=== PATIENT | female | born 1950 | race Caucasian/White ===

== ENCOUNTER → 2016-10-05 | Outpatient (CLI) | payer MEDICARE ==
[~2016-10-05] MED LIST: ACETAMINOPHEN500 M3 PO; AMLO5TAB PO; ASPIRIN 81MG TA81 MG PO; ATENOLOL50 MG PO; BACTRIM DS 8001 TAB PO; BUSPIRONE HCL10 MG PO; CARVEDILOL 1212.5 MG PO; CIPRO 500MG TA500 MG PO; CITALOPRAM20 MG PO; CLOPIDOGREL75 MG PO; DARVOCET-N 1001 EACH PO; FAMOTIDINE 20MG20 MG PO; FENOFIBRATE160 MG PO; FEOSOL45 M1 PO; FLEXERIL10 MG PO; GABAPENTIN 100100 MG PO; GLYBURIDE 5MG TA5 MG PO; GLYBURIDE2.5 MG PO; HUMULIN 70100 UNITS/ SC; HYDROCODONE1 TABLE1 PO; HYDROCODONE1 TABLET PO; IBU-8800 MG PO; JANUVIA50 MG PO; KEFLEX500 M1 PO; LANTUS INS100 UNITS/ SC; LASIX 40MG. TAB40 MG PO; LEVEMIR100 U/M1 SC; LIMBREL500 MG PO; LISINOPRIL 10MG10 MG PO; LISINOPRIL 20MG20 MG PO; LORTAB 5/500 501 TAB PO; LOZOL PO; MELOXICAM7.5 MG PO; METFORMIN500 MG PO; METOCLOPRAMIDE10 M2 PO; NAPROSYN 500MG500 MG PO; NITROGLYCERIN0.4 MG SL; PLAVIX 75MG TAB75 MG PO; PRAVACHOL 40MG40 MG PO; PREDNISONE 20MG20 MG PO; Roxicodone5 MG PO; TESSALON PERLE100 MG PO; TRAMADOL 50MG T50 M1 PO; TRAMADOL50 M1 PO; ULTRAM50 MG PO; ZITHROMAX Z PA250 MG PO
[2016-10-05 08:15] LABS: HEMOGLOBIN 9.6 g/dL (12.2-16.2); LYMPH # 1.2 K/mm3 (0.7-4.5); LYMPH % 25.3 % (10-50.0)
[2016-10-05 10:55] LABS: BUN 62 mg/dL (7-18)
[2016-10-05 10:57] LABS: GFR (ESTIMATED) 14 ML/MIN (59-)
== END ==
LOC: LAB 07:46
PROVIDERS: Internal Medicine Nephrology
DX: N18.4 Chronic kidney disease, stage 4 (severe) (principal)

== ENCOUNTER → 2016-12-28 | Outpatient (CLI) | payer MEDICARE ==
--- NOTE | 2017-01-02 20:06 | RADIOLOGY REPORT PS360 ---
DIG MAMM-SCREEN FIDEL W/CAD CAD Screening COMPARISON: Digital mammograms 12/04/2015 INDICATION: There is no personal or family history of breast cancer. There has been a previous biopsy right breast TECHNIQUE: Standard CC and MLO images were obtained. R2 CAD reviewed. FINDINGS: Moderate diffuse fibroglandular densities are seen throughout both breasts. There is minimal scattered arterial calcification each breast along with scattered benign-appearing calcifications. There is a biopsy clip upper central portion of the right breast. There is no suspicious lesion and no suspicious microcalcifications. IMPRESSION: Fibrofatty parenchyma with stable scattered benign-appearing calcifications, recommend yearly follow-up BI-RADS CATEGORY: 2_Benign RECOMMENDED FOLLOWUP: 12M 12 MONTH FOLLOW-UP (A letter has been sent to the patient regarding results of the study.)
== END ==
LOC: RAD 09:59
DX: Z12.31 Encounter for screening mammogram for malignant neoplasm of breast (principal)
CPT/HCPCS: G0202

== ENCOUNTER → 2017-01-10 | Outpatient (CLI) | payer MEDICARE ==
--- NOTE | 2017-01-10 17:38 | RADIOLOGY REPORT PS360 ---
PROCEDURE: 2-D M-mode and color Doppler study INDICATIONS FOR THE TEST: Chest pain COPD Heart Murmur Tobacco Smoking Palpitations Fatigue Syncope Edema+ Hypertension+Diabetes Mellitus+ Rheumatic Fever SOB+YOON Obesity+Hyperlipidemia Family History HD Additional History CABG, STENT, DIZZINESS PATIENT INFORMATION HEIGHT: 60 WEIGHT:190 GENDER: Female B/P:137/55 2-D/M-MODE INTERPRETATION: 2-D MEASUREMENTS OBSERVED VALUES IN CMS Right Ventricular Dimension (RVDd) 2.7 Interventricular Septum (Thickness)(IVsd) 1.2 Left Ventricular Internal Dimensions(LVIDd) 4.9 Left Ventricular Posterior Wall (Thickness)(LVPWd) 0.9 Aortic Root 2.5 Aortic Cusp Separation 1.9 Left Atrial Dimensions (LAD) 4.4 2D 1. Left atrium is mildly enlarged, left ventricle is normal size, mild qualitative concentric left ventricular hypertrophy present, visually estimated ejection fraction of 55% with no obvious regional wall motion abnormality, endocardial surfaces are somewhat poorly visualized. 2. The right atrium is mildly enlarged, right ventricle is mildly dilated with normal contractility. 3. The aortic valve is thickened and calcified, leaflet continue to display mobility. 4. The mitral valve leaflets are minimally thickened. 5. The tricuspid valve is structurally normal. 6. The pulmonic valve is not well visualized. 7. No significant pericardial effusion noted. DOPPLER INTERROGATION: Doppler interrogation of the aortic mitral and tricuspid valvular presence of mild mitral and tricuspid regurgitation, tricuspid regurgitant jet velocity insufficient for calculation of the right ventricular systolic pressure, grade 1 diastolic dysfunction seen with tissue Doppler evidence of raised left atrial pressure. CONCLUSION: 1. Biatrial enlargement, normal left ventricular size, mild concentric left ventricular hypertrophy, visually estimated ejection fraction 55% with no obvious regional wall motion abnormality, grade 1 diastolic dysfunction seen with tissue Doppler evidence of raised left atrial pressure. 2. Mild mitral and tricuspid regurgitation, tricuspid and jet velocity insufficient for calculation of the right ventricular systolic pressure. 3. No significant pericardial effusion noted.
== END ==
LOC: RT 13:24
DX: R00.1 Bradycardia, unspecified (principal); I25.10 Atherosclerotic heart disease of native coronary artery without angina pectoris; R60.0 Localized edema; R06.02 Shortness of breath; R42 Dizziness and giddiness

== ENCOUNTER → 2017-03-16 | Outpatient (CLI) | payer MEDICARE ==
[~2017-03-16] MED LIST changes: +ADULT LOW DOSE81 MG PO; -HUMULIN 70100 UNITS/ SC; +LEVAQUIN750 MG PO; +NEURONTIN 100100 MG PO; +NOVOLIN 70/30 710 ML SC
== END ==
LOC: LAB 10:32
DX: E11.9 Type 2 diabetes mellitus without complications (principal)

== ENCOUNTER 2017-03-19 09:41 | Inpatient (IN) | payer MEDICARE ==
[~2017-03-19] VITALS: Ht 157.5 cm; Wt 90.7 kg
[~2017-03-19 09:41] MED LIST changes: -ADULT LOW DOSE81 MG PO; -LEVAQUIN750 MG PO; -NEURONTIN 100100 MG PO
[2017-03-19 09:46] VITALS: BP 157/85
[2017-03-19 10:21] LABS: HEMOGLOBIN 10.1 g/dL (12.2-16.2)
[2017-03-19 10:22] LABS: LYMPH # 1.4 K/mm3 (0.7-4.5); LYMPH % 11.3 % (10-50.0)
--- NOTE | 2017-03-19 10:46 | Emergency Room Report ---
See Addendum History of Present Illness Time Seen by MD Calzada Presenting Problem in Triage Pt arrived:Walked Presenting Problem:Family states that around 0230 on morning 03/17 pt fell in hallway at home and has been c/o headache since that day. at this time family state s that she has developed a cough, abdominal pain, nausea and vomiting. 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 N Clinical Suspician of Infection? N Mental Status: 1 - Regular (Normal Baseline) Sepsis Risk:Possible Sepsis Risk Have you (or family members/close friends) recently traveled outside the [place]? N If Yes, where/when: Have you had exposure to infectious disease within the past month? N TB? Other? Specify: Patient with dry cough x one week, no fever. 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 She remembers the fall. She does not report LOC, and there was no loss of bowel or bladder function. Two days ago she also experienced jaw pain, and has experienced jaw pain for the past two days. She has a hx of CABG in 2010 at [facility], with four stents placed, and is currently a patient of Dr. Gray. She denies chest pain. She denies dizzines but has had diffuse cephalgia for the past three days after falling. She denies hip or back pain. No other neurological complaints. She also has cramping with diarrhea, nonbloody, since last night. No fever. No congestion. No flu sx. ALLERGIES Coded Allergies: fentanyl (04/27/16) latex (04/27/16) Home Medications Reported Medications PRAVASTATIN SODIUM (Pravastatin Sodium) 40 MG PO QHS Famotidine (Famotidine 20MG) 20 MG PO BID CITALOPRAM HYDROBROMIDE (Citalopram HBr) 20 MG PO DAILY Furosemide (Lasix 40MG) 40 MG PO DAILY Cyclobenzaprine Hcl (Flexeril) 10 MG PO TIDP PRN MUSCLE RELAXER Fenofibrate (Fenofibrate 160MG (GEQ: Lofibra)) 160 MG PO QHS Iron,Carbonyl (Feosol) 45 MG PO DAILY Amlodipine Besylate (Amlodipine) 5 MG PO DAILY #30 TAB Carvedilol (Carvedilol 12.5MG) 12.5 MG PO BID #60 TAB GABAPENTIN (Gabapentin 100MG Capsule) 100 MG PO BID Sitagliptin Phosphate (Januvia) 50 MG PO DAILY INSULIN NPH HUM/REG INSULIN HM (Novolin 70-30 100 Unit/Ml Vial) 20 UNITS SC BID TRAMADOL HCL (Tramadol) 50 MG PO TIDP PRN PAIN History Medical History General CAD? No Angina: Yes NV: Yes Hypertension? Yes Hyperlipidemia? Yes CHF? No DVT? No PE? No COPD? No Asthma? No Anemia? No GERD? No Gastric ulcers? No GI Bleed? No Hernia? No Thyroid Problems? No Hypothyroidism? No CVA? No Seizures? No Diabetes? Yes Insulin Dependent: Yes Insulin Pump: No Home FSBS? Yes Renal Insuffiency? No End Stage Renal Disease? No UTI? No Stones? No BPH? No GB Disease: Yes Nephritic Syndrome? No Asplenia? No Hepatitis? No Sickle Cell Disease? No Arthritis? No Migraines? No Cataracts? Yes Glaucoma? No MRSA? No HIV? No TB? No Anxiety? No Depression? No Cancer? No More? No Additional hx: OSTEOARTHRITIS,CHRONIC KIDNEY DISEASE STAGE IV Immunization Hx DT/Tetanus Unknown Flu LAST YEAR Pneumonia Received In Past Surgical Hx Previous Surgery?Y CARDIAC STENT D AND C Tubal Ligation CATARACT TO R EYE LT EYE CATARACT REMOVED QUAD.BYPASS 09/28 BILATERAL EYES Family History Family Hx Diabetes Yes CAD Yes Hypertension Yes Hyperlipidemia Yes Cancer Yes TB No Social History Smoking Hx Smoker: Never Smoker Tobacco: No Packs/day N/A Alcohol Alcohol: No Review of Systems All Other Systems Reviewed and Negative Respiratory cough Cardiovascular denies no symptoms reported Gastrointestinal see HPI, diarrhea Musculoskeletal see HPI, other (left elbow pain/bruising ) Skin see HPI (bruising L elbow s/p fall) Psychiatric/Neurological headache Physical Exam Vital Signs Vital Signs Date Time Temp Pulse Resp B/P Pulse O2 O2 Flow FiO2 Ox Delivery Rate 03/19 1212 93 18 166/76 94 03/19 1053 98.3 92 18 191/81 94 03/19 0946 98.2 100 20 157/85 96 General Appearance normal appearance, WD/WN, no apparent distress Eye Exam - bilateral eye normal exam, bilateral eye PERRL, bilateral eye EOMI Ear, Nose, Throat hearing grossly normal (atraumatic) Neck normal inspection, non-tender, supple, full range of motion Respiratory Status Yes: trachea midline, chest symmetrical, non tender chest, non productive cough. No: respiratory distress, tender on palpation, use of accessory muscles, pain on inspiration, pain on expiration, productive cough. Lung Sounds bilateral: normal breath sounds, lungs clear (coarse but no rhonchi). 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 No Results/Orders Laboratory Tests 03/19/17 1046: Troponin I Cancelled 03/19/17 1015: Creatine Kinase 670 H, CK-MB (CK-2) Rel Index 0.7, CK and CKMB Interp 5.0 H, Troponin I 0.56 H 03/19/17 1015: Amylase 21 L, Lipase 115 03/19/17 1015: Sodium 136, Potassium 3.5, Chloride 99, Carbon Dioxide 30, BUN 16, Creatinine 1.8 H, Estimated Creat Clear 41 L, Estimated GFR (MDRD) 28 L, Glucose 286 H, Calcium 9.1, Total Bilirubin 1.4 H, AST 42 H, ALT 25, Alkaline Phosphatase 81, Total Protein 6.6, Albumin 2.9 L, Globulin 3.7 H, Albumin/Globulin Ratio 0.8 L, WBC 12.0 H, RBC 3.28 L, Hgb 10.1 L, Hct 31.1 L, MCV 94.8, RDW 13.0, Plt Count 310, Gran % 82.0 H, Gran # 9.8 H, Lymphocytes % 11.3, Monocytes % 6.7, Lymphocytes # 1.4, Monocytes # 0.8, PUBS MCHC 32.5, MCH 30.8 Current Medication Orders Sig/Aubree Start time Last Medication Dose Route Stop Time Status Admin Levofloxacin/Dextrose 100 ML ONCE ONE 03/19 1245 r IV 03/19 1344 Sodium Chloride 10 ML PRN PRN 03/19 0945 AC IV 03/20 0945 Orders Procedure Date/time Status DIET-NOTHING BY MOUTH 03/19 L Complete Decision to admit 03/19 1245 Active TROPONIN I 03/19 1211 Active ELBOW-LT-3 VIEWS 03/19 1046 Active 12 LEAD EKG-BESSON (INITIAL) 03/19 1029 Active ELECTROCARDIOGRAM REQUEST 03/[address] ABD/PELVIS REQ 03/19 1029 Active CARDIAC ENZYMES 03/[address] HEAD REQ 03/19 1002 Active LIPASE 03/19 0946 Complete AMYLASE 03/19 0946 Complete IV SALINE LOCK 03/19 0945 Active URINALYSIS/COMPLETE 03/19 0945 Active FSBS REQUEST BY [facility] 03/19 0945 Active CBC WITH AUTO DIFF 03/19 945 Complete CHEM 12 PROFILE 03/19 945 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 of ischemic chgs, no ectopy, normal QRS, normal NH, normal EKG (LBBB seen on two prior EKG's) XRAY/CT/US XRAY/CT/US 1 XRAY chest, elbow XR interpretation by reviewed by me, discussed w/radiologist Xray Results normal/NAD (neg acute per Dr. Dexter), abnormal (STS, irregular humerus AP view), baseline CM, atelectasis CT head CT interpretation by reviewed by me (report reviewed) Time results known: 1239 CT Results normal/NAD XRAY/CT/US 2 CT abdomen, pelvis CT interpretation by reviewed by me, discussed w/radiologist Time results known: 1301 CT Results abnormal, Dr. Dexter states that although the CXR was read as negative, he can see the patient has bibasilar infiltrates on the ABD/PELVIS CT. He sees no acute findings other than some edema otherwise. Consult MD Physician Consult 1 Time Called 1113 Reason Pt. Condition, Cardiology eval/care Comments Dr. Gray recommends increasing Carvedilol by one dose, no further intervention due to two day hx jaw pain. Physician Consult 2 Time Called [address] Dillon paged to see if in clinic, although rad studies still pending. Physician Consult 3 Time Called [address] Hay is covering for Dr. Dillon today, who is out of town. We will admit. CT abdomen and pelvis still pending; final elbow reading and CXR reading still pending. No further jaw pain. Second troponin pending. Departure Departure Time of Disposition 1241 Disposition Still a Patient Clinical Impression Primary Impression: Elevated troponin Secondary Impressions: Diarrhea Qualifiers: Diarrhea type: unspecified type Qualified Code: R19.7 - Diarrhea, unspecified Pneumonia Qualifiers: Pneumonia type: due to unspecified organism Laterality: bilateral Lung location: lower lobe of lung Qualified Code: J18.9 - Pneumonia, unspecified organism Condition STABLE Referrals Chase Dillon MD (Family) ED Critical Care Critical Care No at 1320
--- NOTE | 2017-03-19 12:31 | RADIOLOGY REPORT PS360 ---
CT HEAD WITHOUT CONTRAST CT BONE WINDOWS included ORDERING PHYSICIAN : Miryam Hernandez MD PATIENT AGE: 66 years GENDER: Female PROCEDURE: Routine axial images headwithout contrast. Brain & bone windows no contrast. 2 sets of images were obtained due to motion artifact on the base of brain on an initial image set HISTORY: HEADACHE diarrhea and vomiting headache,, recent fall with headache and jaw pain COMPARISON: Previous CT head from October 2014 FINDINGS: No acute intracranial findings. No hemorrhage. No territorial infarct. No mass effect or mass lesion. No subdural nor extra-axial collection. Ventricles & basal cisterns appear satisfactory. No significant change since 2014. Minimal physiologic calcification of the right basal ganglia again noted. Unchanged Mild cerebral atrophy again noted with a few minor chronic small vessel deep white matter ischemic changes most evident about anterior horns lateral ventricles bilateral.. .. The posterior fossa appear satisfactory and unremarkable. The skull is intact. Scant mucosal thickening at the inferior right frontal sinus and its junction with ethmoid air cells. Barely appreciable. Also Scant mucosal thickening at the posterior inferior left maxillary sinus.. Mastoid air cells, middle ear & IACs are unremarkable. IMPRESSION: No acute intracranial findings. Stable CT head versus October 2014 Stable Mild cerebral atrophy
--- NOTE | 2017-03-19 12:56 | RADIOLOGY REPORT PS360 ---
CT ABD PELVIS W/O CONTRAST HISTORY: N/Vdiarrhea vomiting also recent fall with headache and jaw pain. Elevated cardiac enzymes Patient Age: 66 years: Female Ordering Physician: Miryam Hernandez MD TECHNIQUE: Helical CT scanning through abdomen pelvis with no oral nor IV contrast utilized. Sagittal coronal reconstructions on CT workstation COMPARISON :Previous CTA abdomen February 2016. FINDINGS Lung bases.. Peribronchial slightly nodular, patchy infiltrate left infrahilar bilaterally, most notable on the left. Suggestion Mild airway thickening towards lower lobes. This is a change since prior study. Recommend chest film correlation. Heart appears normal size with [id number] coronary artery calcification noted. No pericardial effusion. No significant pleural effusions Abdomen/Pelvis-/lack of oral and IV contrast decreases sensitivity. There appears to be diffuse edema in the subcutaneous soft tissues particular evident towards the buttocks. This requires clinical correlation. Consider edematous state. Liver. No focal lesion. No biliary ductal dilatation. Perhaps slight diffuse fatty changes. There are a few curious new calcification with minor density adjacent, seen along posterior margin right lobe right lobe of liver/ towards superior aspect Morison's pouch region. Curious observation. Gallbladder is been removed. Pancreas unremarkable. Adrenals stable. No significant findings. Spleen normal size. 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 This measures up to 20 mm x length 10 mm wide.. Kidneys. No hydronephrosis or obstruction. Ureters unremarkable. Left kidney: Small punctate 3 mm calculus nonobstructive at midportion left kidney, image 64.. Faint vascular calcification posterior kidney. Right kidney: normal size no nephrolithiasis.. Pelvis. Small postmenopausal uterus. No adnexal masses .. Suspect scant fluid at cul-de-sac (axial image 84 sagittal 53) just right of midline & posterior to the uterus. Osseous. No significant lesions. Degenerative changes spine similar to previous study. Disc space narrowing is slight retrolisthesis most evident at L2/3. Disc bulge at this level along with other features yields mild spinal stenosis. Prominent Facet hypertrophy most evident L4/5 L5/S1. Mild spinal stenosis L4/5. GI tract. No bowel dilatation or obstruction. Upper normal thickness stomach wall possible small hiatal hernia. Small bowel upper normal thickness in some areas but no dilatation. Terminal ileum is normal. Appendix not discretely visualized but no good evidence of appendicitis.. It becomes a concern clinically a follow-up study with oral contrast and if satisfactory renal function IV contrast would be suggested. Scattered small mesenteric nodes towards right lower quadrant IMPRESSION: 1. No bowel dilatation or obstruction. Appendix not discretely to visualize but no evidence of appendicitis on this study 2. Bibasilar peribronchial inflammatory changes/& infiltrates incidentally noted. Somewhat nodular appearing infiltrates infrahilar region & towards lower lobes bilaterally. Slightly more evident on left 3..Mild edematous changes throughout subcutaneous fat, becoming most evident towards the buttocks region... More pronounced than 2016 CT. May reflect hypoproteinemia or some form of edematous state. Clinical correlation required. 4. Suggestion scant fluid at cul-de-sac. No adnexal masses. 5. Small calcification along posterior margin right lobe of liver.. Doubtful significance but would benefit from follow-up since new versus 2016
--- NOTE | 2017-03-19 13:06 | RADIOLOGY REPORT PS360 ---
CHEST-PORTABLE HISTORY: fall; cough x one week Patient Age: 66 years: Female Ordering Physician: Miryam Hernandez MD TECHNIQUE: AP portable upright chest COMPARISON :Previous chest film 09/02/2016 FINDINGS . Sternotomy. Mild cardiomegaly. There is exaggeration markings toward lung bases compared to the prior study. Today's CT but are demonstrates would appear to be peribronchial inflammation and with slightly patchy/nodular areas of minimal peribronchial infiltrates seen on the CT. These only question is seen on the chest film more evident on the left base and left perihilar region than right. There is upper normal pulmonary vascularity but no overt CHF. No pleural effusion. Chest wall otherwise unremarkable. Severity arthritic changes left shoulder with progressive erosion of the humeral head at would appear since August 2016. Consider left shoulder follow-up radiograph IMPRESSION...... Minimal bilateral infrahilar & bibasilar infiltrates... Slightly more evident on the left. Question associated subtle perihilar infiltrate on left. . (this study reviewed with concurrence CT abdomen which better confirms minimal peribronchial infiltrates at lung bases) Cardiomegaly. Previous sternotomy likely for CABG Pronounced arthritic changes left shoulder. Suspect progressive erosive changes humeral head since August 2016 Consider left shoulder follow-up study
[2017-03-19] MEDS ORDERED: ADULT LOW DOSE81 MG PO (13:33)
[2017-03-19] MEDS ORDERED: PLAVIX 75MG TAB75 MG PO (13:34)
--- NOTE | 2017-03-19 14:29 | RADIOLOGY REPORT PS360 ---
ELBOW-LT-3 VIEWS HISTORY: fallleft elbow pain Patient Age: 66 years: Female Ordering Physician: Miryam Hernandez MD TECHNIQUE 3 views left shoulder COMPARISON :None available FINDINGS I see no definitive joint effusion. Anterior fat pad upper normal prominence on this slightly rotated lateral view of elbow. There is a slight undulation at the neck of the radius. Most likely normal contour variation but if pain should persist follow-up study in 7 days 10 days suggested. Note minor Early hypertrophic changes at the anterior margin of coronoid process. Joint spaces well-maintained. Supracondylar region appears satisfactory-a subtle line projected over this lateral supracondylar region on AP view continues to the lateral soft tissues & I believe is merely artifact line.. Vascular calcification at the anterior forearm noted. IMPRESSION: . No good evidence of fracture. No dislocation No definitive joint effusion. However patient persist consider follow-up within 7-10 days
[2017-03-19 15:01] VITALS: BP 169/69
[2017-03-19 15:11] VITALS: BP 169/69
[2017-03-19] MEDS ORDERED: NEURONTIN 100100 MG PO (15:42)
[2017-03-19 18:20] LABS: URINE BLOOD 2+ (NEG)
[2017-03-19 18:21] LABS: URINE BILIRUBIN - DIPSTICK NEGATIVE (NEG)
[2017-03-19 19:23] VITALS: BP 163/76
[2017-03-19 21:30] VITALS: BP 163/76
[2017-03-20] VITALS (8 sets, daily range): BP systolic 151–174; BP diastolic 58–71
[2017-03-20 06:40] LABS: LYMPH # 1.2 K/mm3 (0.7-4.5); LYMPH % 12.7 % (10-50.0)
[2017-03-20 06:43] LABS: HEMOGLOBIN 9.2 g/dL (12.2-16.2)
--- NOTE | 2017-03-20 08:01 | HISTORY AND PHYSICAL REPORT ---
Demographics: Admit date: 03/19/17 Chief complaint: Vomiting PRIMARY DIAGNOSIS: ELEVATED TROPONIN, PNEUMONIA, DIARRHEA Allergies: Coded Allergies: fentanyl (04/27/16) latex (04/27/16) History of present illness: History of present illness: 66-year-old female with history of coronary artery disease presented to the emergency department yesterday after developing nausea and vomiting. Patient and her family report on morning patient had a fall at home. She does not recall how she fell. On and Tuesday the patient complained of jaw pain. She has a history of coronary artery disease and coronary artery bypass graft procedure. Yesterday the patient developed vomiting and requested she be brought to the emergency department. In the emergency department she underwent workup and was found to have [address] scan of her abdomen showed lower lobe infiltrates and troponin was abnormal on labs. Troponin is risen since admission. Dr. Gray was notified and patient was given additional beta jayro. She has been admitted for IV antibiotics. Patient herself denies any recent fevers, chills or sensation of shortness of breath. Vomiting has ceased and she is eating breakfast this morning. She has not had any further jaw pain and denies ever having any chest pain or LEFT arm pain. Her daughter reports that many years ago and her coronary artery disease was first detected it presented as LEFT arm pain radiating up into the jaw Past medical history: Family HX Family Hx Insignificant No Diabetes Yes CAD Yes Hypertension Yes Hyperlipidemia Yes Cancer Yes TB No Immunization HX DT/Tetanus > 10 Years Ago Flu LAST YEAR Pneumonia Received In Past TB Test in last year No General CAD? No Angina: Yes [place]: Yes Hypertension? Yes Hyperlipidemia? Yes CHF? No DVT? No PE? No COPD? No Asthma? No Anemia? No GERD? No Gastric ulcers? No GI Bleed? No Hernia? No Thyroid Problems? No Hypothyroidism? No CVA? No Seizures? No Diabetes? Yes Insulin Dependent: Yes Insulin Pump: No Home FSBS? Yes Renal Insuffiency? No UTI? No Stones? No BPH? No GB Disease: Yes Nephritic Syndrome? No Asplenia? No Hepatitis? No Sickle Cell Disease? No Arthritis? No Migraines? No Cataracts? Yes Glaucoma? No MRSA? No HIV? No TB? No Anxiety? No Depression? No Cancer? No More? No Additional hx: OSTEOARTHRITIS,CHRONIC KIDNEY DISEASE STAGE IV Past Surgical HX Previous Surgery?Y CARDIAC STENT D AND C Tubal Ligation CATARACT TO R EYE LT EYE CATARACT REMOVED QUAD.BYPASS 09/28 BILATERAL EYES Current home meds: Reported Medications PRAVASTATIN SODIUM (Pravastatin Sodium) 40 MG PO QHS Famotidine (Famotidine 20MG) 20 MG PO BID CITALOPRAM HYDROBROMIDE (Citalopram HBr) 20 MG PO DAILY Furosemide (Lasix 40MG) 40 MG PO DAILY Cyclobenzaprine Hcl (Flexeril) 10 MG PO TIDP PRN MUSCLE RELAXER Fenofibrate (Fenofibrate 160MG (GEQ: Lofibra)) 160 MG PO QHS Iron,Carbonyl (Feosol) 45 MG PO DAILY Carvedilol (Carvedilol 12.5MG) 12.5 MG PO BID #60 TAB Amlodipine Besylate (Amlodipine) 5 MG PO BID #30 TAB GABAPENTIN (Gabapentin 100MG Capsule) 100 MG PO DAILY Sitagliptin Phosphate (Januvia) 50 MG PO DAILY Aspirin (Adult Low Dose Aspirin EC) 81 MG PO DAILY CLOPIDOGREL BISULFATE (PLAVIX) 75 MG PO DAILY Gabapentin (Neurontin) 200 MG PO QHS INSULIN NPH HUM/REG INSULIN HM (Novolin 70-30 100 Unit/Ml Vial) 20 UNITS SC BID TRAMADOL HCL (Tramadol) 50 MG PO TIDP PRN PAIN Social Hx: Smoking HX Tobacco No Packs/day N/A Are you/the child exposed to second-hand smoke: No Alcohol Alcohol: No Hx of Drug Use Drug Use? No Patient's support system is good Review of systems: Constitutional No: chills, diaphoresis, fever, malaise. Respiratory see HPI. Cardiovascular see HPI Gastrointestinal/Abdominal see HPI Genitourinary no symptoms reported. Musculoskeletal no symptoms reported. Neurological Yes: no symptoms reported. Exam: Lab data for last 24 hours: Laboratory Tests 03/20/17 06: POC Glucose 172 H 03/20/17 06: Sodium 137, Potassium 3.2 L, Chloride 99, Carbon Dioxide 32, BUN 16, Creatinine 1.6 H, Estimated Creat Clear 48 L, Estimated GFR (MDRD) 32 L, Glucose 169 H, Calcium 8.5, WBC 9.4, RBC 3.04 L, Hgb 9.2 L, Hct 28.1 L, MCV 92.6, RDW 13.0, Plt Count 285, MPV 7.6, Gran % 74.3, Gran # 7.0, Lymphocytes % 12.7, Monocytes % 9.7 H, Eosinophils % 2.8, Basophils % 0.4, Lymphocytes # 1.2, Monocytes # 0.9, Eosinophils # 0.3, Basophils # 0.0, PUBS MCHC 32.7, MCH 30.3 03/19/17 2020: POC Glucose 188 H 03/19/17 1805: Urine Color YELLOW, Urine Appearance CLOUDY, Urine pH 6.5, Ur Specific [place] 1.015, Urine Protein 3+ H, Urine Ketones NEGATIVE, Urine Blood 2+ H, Urine Nitrate NEGATIVE, Urine Bilirubin NEGATIVE, Urine Urobilinogen 1.0, Ur Leukocyte Esterase TRACE H, Urine RBC 5-10, Urine WBC 20-50, Ur Squamous Epith Cells 5-10 , Urine Bacteria 4+, Hyaline Casts 5-10, Urine Glucose 2+ H 03/19/17 1703: POC Glucose 243 H 03/19/17 1610: Troponin I 1.04 H 03/19/17 1330: Troponin I 0.66 H 03/19/17 1015: Creatine Kinase 670 H, CK-MB (CK-2) Rel Index 0.7, CK and CKMB Interp 5.0 H, Troponin I 0.56 H 03/19/17 1015: B-Natriuretic Peptide 500 H 03/19/17 1015: Amylase 21 L, Lipase 115 03/19/17 1015: Sodium 136, Potassium 3.5, Chloride 99, Carbon Dioxide 30, BUN 16, Creatinine 1.8 H, Estimated Creat Clear 41 L, Estimated GFR (MDRD) 28 L, Glucose 286 H, Calcium 9.1, Total Bilirubin 1.4 H, AST 42 H, ALT 25, Alkaline Phosphatase 81, Total Protein 6.6, Albumin 2.9 L, Globulin 3.7 H, Albumin/Globulin Ratio 0.8 L, WBC 12.0 H, RBC 3.28 L, Hgb 10.1 L, Hct 31.1 L, MCV 94.8, RDW 13.0, Plt Count 310, Gran % 82.0 H, Gran # 9.8 H, Lymphocytes % 11.3, Monocytes % 6.7, Lymphocytes # 1.4, Monocytes # 0.8, PUBS MCHC 32.5, MCH 30.8 Microbiology 03/19 1805 URINE CC: Urine Culture - RECD Admission vital signs: 1ST Vital Signs Result Date Time Pulse Ox 96 03/19 946 B/P 157/85 03/19 09 Temp 98.2 03/19 09 Pulse 100 03/19 0946 Resp 20 03/19 09 O2 Delivery ROOM AIR 03/19 1501 O2 Flow Rate 1 03/19 1542 Additional information: Patient is awake and alert sitting up in bed. She is pleasant and talkative. HEENT exam is grossly normal. Neck without carotid bruits or jugular venous distention. Lungs reveal LEFT basilar rales that are very faint. Heart has a regular rate and rhythm. Abdomen is soft and nontender. Extremities have 1+ edema with skin changes consistent with chronic venous insufficiency Plan: Problem List 1. Pneumonia 2. Non-ST elevation myocardial infarction (NSTEMI) Plan: 1. IV Levaquin for pneumonia 2. Aspirin, Plavix, beta blockers and cardiology consult for non-ST elevation myocardial infarction. at 0800
--- NOTE | 2017-03-20 08:47 | PHARMACY CLINIC NOTE ---
Patient Demographics Patient Demographics Admission date: 03/19/17 Date: 03/20/17 Time: 0846 Allergies Coded Allergies: fentanyl (04/27/16) latex (04/27/16) HEIGHT- FT: 5 IN: 2.00 K.173 VTE General Information Labs: Laboratory Tests 03/20 03/19 0609 1015 Hematology Hgb (12.2 - 16.2 g/dL) 9.2 L 10.1 L Hct (37.0 - 47.0 %) 28.1 L 31.1 L Plt Count (142 - 424 K/mm3) 285 310 Disclaimer The following section includes nursing documentation that has been pulled in for pharmacy review. Patient's VTE score: 4 Patient's VTE Risk: LOW RISK Clinical trial participant? No VTE prophylaxis NQF [id number] VTE prophylaxis ordered? Yes Type of prophylaxis/treatment: BRIAN at 0846
[2017-03-21] VITALS (16 sets, daily range): BP systolic 127–173; BP diastolic 54–68
[2017-03-21 06:54] LABS: HEMOGLOBIN 9.2 g/dL (12.2-16.2); LYMPH # 1.5 K/mm3 (0.7-4.5); LYMPH % 13.6 % (10-50.0)
--- NOTE | 2017-03-21 08:04 | CONSULT NOTE ---
Standard Demographics Patient Demo Date of Consultation: 03/21/17 Referring Provider: Chase Dillon MD Reason for Consultation: Elevated troponin PRIMARY DIAGNOSIS: ELEVATED TROPONIN, PNEUMONIA,DIARRHEA Problem list Problem list: 1. Coronary artery disease A. History of coronary bypass grafting in 2010. B. Abnormal stress test, February/2016, with anterior ischemia. C. Cardiac catheterization, 02/2016, 1. The left main artery normal 2. The left anterior descending artery has a proximal eccentric 80% stenosis and is then occluded at mid vessel 3. The circumflex artery is proximally occluded 4. The right coronary artery is proximally occluded 5. The RAMON ventriculogram reveals normal 65% 6. The left ventricular end-diastolic pressure normal 10 mmHg 7. Left internal mammary artery is widely patent to the mid LAD 8. The saphenous vein graft to the circumflex which artery is widely patent and makes its anastomosis on to 2 separate obtuse marginal arteries. 9. The saphenous vein graft to the posterior ascending artery is widely patent 10. Right renal artery is singular and normal 11. The left renal artery is singular and normal 2. Chronic kidney disease, stage IV, followed by Dr. Gerardo June. Chronic anemia 3. Hypertension 4. Hyperlipidemia 5. Diabetes mellitus History of present illness: History of present illness: 66-year-old female with history of coronary artery disease presented to the emergency department yesterday after developing nausea and vomiting. Patient and her family report on morning patient had a fall at home. She does not recall how she fell. On and Tuesday the patient complained of jaw pain. She has a history of coronary artery disease and coronary artery bypass graft procedure. Yesterday the patient developed vomiting and requested she be brought to the emergency department. In the emergency department she underwent workup and was found to have [address] scan of her abdomen showed lower lobe infiltrates and troponin was abnormal on labs. Troponin is risen since admission. Dr. Gray was notified and patient was given additional beta jayro. She has been admitted for IV antibiotics. Patient herself denies any recent fevers, chills or sensation of shortness of breath. Vomiting has ceased and she is eating breakfast this morning. She has not had any further jaw pain and denies ever having any chest pain or LEFT arm pain. Her daughter reports that many years ago and her coronary artery disease was first detected it presented as LEFT arm pain radiating up into the jaw. The above per Dr. Meraz. Past Medical History: General: Hypertension Yes CVA No Seizures No TB No COPD No Asthma No Diabetes Yes Insulin Dependent Yes Insulin Pump No Angina Yes [place] Yes Hyperlipidemia Yes Urinary No Cancer No Rheumatic H.D. No Ulcers Yes MRSA No GB Disease Yes Other CAD , ACID REFLUX Additional hx OSTEOARTHRITIS,CHRONIC KIDNEY DISEASE STAGE IV Past Surgical HX: Previous Surgery?Y CARDIAC STENT D AND C Tubal Ligation CATARACT TO R EYE LT EYE CATARACT REMOVED QUAD.BYPASS 09/28 BILATERAL EYES Allergies Coded Allergies: fentanyl (04/27/16) latex (04/27/16) Home medications: Reported Medications PRAVASTATIN SODIUM (Pravastatin Sodium) 40 MG PO QHS Famotidine (Famotidine 20MG) 20 MG PO BID CITALOPRAM HYDROBROMIDE (Citalopram HBr) 20 MG PO DAILY Furosemide (Lasix 40MG) 40 MG PO DAILY Fenofibrate (Fenofibrate 160MG (GEQ: Lofibra)) 160 MG PO QHS Iron,Carbonyl (Feosol) 45 MG PO DAILY Carvedilol (Carvedilol 12.5MG) 12.5 MG PO BID #60 TAB Amlodipine Besylate (Amlodipine) 5 MG PO BID #30 TAB GABAPENTIN (Gabapentin 100MG Capsule) 100 MG PO DAILY Sitagliptin Phosphate (Januvia) 50 MG PO DAILY Aspirin (Adult Low Dose Aspirin EC) 81 MG PO DAILY CLOPIDOGREL BISULFATE (PLAVIX) 75 MG PO DAILY Gabapentin (Neurontin) 200 MG PO QHS INSULIN NPH HUM/REG INSULIN HM (Novolin 70-30 100 Unit/Ml Vial) 20 UNITS SC BID TRAMADOL HCL (Tramadol) 50 MG PO TIDP PRN PAIN Current Medications: Current Medications Diphenhydramine HCl 50 MG ONCE ONE IV (UNV) Sodium Chloride 10 ML PRN PRN IV (UNV) Sodium Chloride 1,000 ML .Q25H IV (UNV) Fentanyl Citrate 25 MCG PRN PRN IV Fentanyl Citrate 50 MCG PRN PRN IV Flumazenil 0.2 MG PRN PRN IV Heparin Sodium (Beef Lung) 5,000 UNITS PRN PRN IV Heparin Sodium/Sodium Chloride 3,000 UNITS PRN PRN IV Lidocaine HCl 20 ML ONCE ONE IJ (DC) Midazolam HCl 1 MG PRN PRN IV Midazolam HCl 1 MG PRN PRN IV Naloxone HCl 0.4 MG [id number] PRN IV Nitroglycerin 800 MCG PRN PRN IV Verapamil HCl 5 MG PRN PRN IV Guaifenesin/Dextromethorphan 0 .STK-MED ONE .ROUTE (DC) Guaifenesin 0 .STK-MED ONE PO (DC) Amlodipine Besylate 5 MG DAILY PO Aspirin 325 MG DAILY PO Carvedilol 25 MG BID PO Citalopram Hydrobromide 20 MG DAILY PO Furosemide 40 MG DAILY PO Levofloxacin/Dextrose 100 ML DAILY IV Potassium Chloride 20 MEQ BID PO Sitagliptin Phosphate 50 MG DAILY PO Guaifenesin/Dextromethorphan 0 .STK-MED ONE .ROUTE (DC) Guaifenesin/Dextromethorphan 5 ML Q4HP PRN PO Famotidine 20 MG BID PO Gabapentin 100 MG BID PO Pravastatin Sodium 40 MG QHS PO (CKD) Diagnostic Test (Pha) 1 EACH W/MEALS&HS FS Insulin Human [rDNA origin] SEE ADMIN CRITERIA FOR LOW INTENSITY SS W/MEALS&HS SC Clopidogrel Bisulfate 75 MG DAILY PO Cyclobenzaprine HCl 10 MG TIDP PRN PO Sodium Chloride 10 ML PRN PRN IV Tramadol HCl 50 MG BIDP PRN PO Sodium Chloride 10 ML PRN PRN IV (DC) Immunization HX DT/Tetanus > 10 Years Flu LAST YEAR Pneumonia RECEIVED IN PAST TB Test in last year No Family history Family HX Family Hx Insignificant No Diabetes Yes CAD Yes Hypertension Yes Hyperlipidemia Yes Cancer Yes TB No Social Hx: Smoking HX Tobacco No Packs/day N/A Are you/the child exposed to second-hand smoke: No Alcohol Alcohol: No Hx of Drug Use Drug Use? No Review of systems: Constitutional see HPI, weakness. Respiratory see HPI, cough. Cardiovascular see HPI Gastrointestinal/Abdominal diarrhea Genitourinary No: no symptoms reported. Musculoskeletal No: no symptoms reported. Neurological No: no symptoms reported. Exam: Admission Vital Signs: 1ST Vital Signs Result Date Time Pulse Ox 96 03/19 0946 B/P 157/85 03/19 0946 Temp 98.2 03/19 0946 Pulse 100 03/19 0946 Resp 20 03/19 0946 O2 Delivery ROOM AIR 03/19 1501 O2 Flow Rate 1 03/19 1542 Last Vital Signs: Vital Signs Result Date Time O2 Flow Rate 1 03/21 624 Pulse Ox 92 03/21 358 B/P 145/57 03/21 358 O2 Delivery OXYGEN 03/21 358 Temp 98.3 03/21 358 Pulse 57 03/21 358 Resp 20 03/21 358 Exam General appearance: alert, awake, no acute distress Neck: no carotid bruit, no JVD Cardiovascular: regular rate & rhythm, murmur Respiratory: rhonchi ABD: soft Extremities: moves all, edema Neuro: alert, intact, oriented Laboratory data: Laboratory Tests 03/21/17619: Sodium 136, Potassium 4.5, Chloride 100, Carbon Dioxide 32, BUN 21 H, Creatinine 1.8 H, Estimated Creat Clear 43 L, Estimated GFR (MDRD) 28 L, Glucose 156 H, Calcium 8.7, Triglycerides 180, Cholesterol 145, LDL Cholesterol 81.0, VLDL Cholesterol 36.0, HDL Cholesterol 28.0 L, WBC 11.3 H, RBC 3.10 L, Hgb 9.2 L, Hct 28.8 L, MCV 93.0, RDW 13.0, Plt Count 316, MPV 7.5, Gran % 72.9 , Gran # 8.2 H, Lymphocytes % 13.6, Monocytes % 7.8, Eosinophils % 5.2, Basophils % 0.5, Lymphocytes # 1.5, Monocytes # 0.9, Eosinophils # 0.6 H, Basophils # 0.1, PUBS MCHC 32.1, MCH 29.8 03/20/17 2029: POC Glucose 209 H 03/20/17 1646: POC Glucose 253 H 03/20/17 1126: POC Glucose 226 H 03/20/17 0624: POC Glucose 172 H 03/20/17 0609: Sodium 137, Potassium 3.2 L, Chloride 99, Carbon Dioxide 32, BUN 16, Creatinine 1.6 H, Estimated Creat Clear 48 L, Estimated GFR (MDRD) 32 L, Glucose 169 H, Calcium 8.5, WBC 9.4, RBC 3.04 L, Hgb 9.2 L, Hct 28.1 L, MCV 92.6, RDW 13.0, Plt Count 285, MPV 7.6, Gran % 74.3, Gran # 7.0, Lymphocytes % 12.7, Monocytes % 9.7 H, Eosinophils % 2.8, Basophils % 0.4, Lymphocytes # 1.2, Monocytes # 0.9, Eosinophils # 0.3, Basophils # 0.0, PUBS MCHC 32.7, MCH 30.3 03/19/17 2020: POC Glucose 188 H 03/19/17 1805: Urine Color YELLOW, Urine Appearance CLOUDY, Urine pH 6.5, Ur Specific [place] 1.015, Urine Protein 3+ H, Urine Ketones NEGATIVE, Urine Blood 2+ H, Urine Nitrate NEGATIVE, Urine Bilirubin NEGATIVE, Urine Urobilinogen 1.0, Ur Leukocyte Esterase TRACE H, Urine RBC 5-10, Urine WBC 20-50, Ur Squamous Epith Cells 5-10 , Urine Bacteria 4+, Hyaline Casts 5-10, Urine Glucose 2+ H 03/19/17 1703: POC Glucose 243 H 03/19/17 1610: Troponin I 1.04 H 03/19/17 1330: Troponin I 0.66 H 03/19/17 1015: Creatine Kinase 670 H, CK-MB (CK-2) Rel Index 0.7, CK and CKMB Interp 5.0 H, Troponin I 0.56 H 03/19/17 1015: B-Natriuretic Peptide 500 H 03/19/17 1015: Amylase 21 L, Lipase 115 03/19/17 1015: Sodium 136, Potassium 3.5, Chloride 99, Carbon Dioxide 30, BUN 16, Creatinine 1.8 H, Estimated Creat Clear 41 L, Estimated GFR (MDRD) 28 L, Glucose 286 H, Calcium 9.1, Total Bilirubin 1.4 H, AST 42 H, ALT 25, Alkaline Phosphatase 81, Total Protein 6.6, Albumin 2.9 L, Globulin 3.7 H, Albumin/Globulin Ratio 0.8 L, WBC 12.0 H, RBC 3.28 L, Hgb 10.1 L, Hct 31.1 L, MCV 94.8, RDW 13.0, Plt Count 310, Gran % 82.0 H, Gran # 9.8 H, Lymphocytes % 11.3, Monocytes % 6.7, Lymphocytes # 1.4, Monocytes # 0.8, PUBS MCHC 32.5, MCH 30.8 Microbiology Date/Time Procedure - Status Source Growth 03/19 1805 Urine Culture - RES URINE CC Plan: Assessment: 1. Elevated troponins consistent with non-STEMI. Electrocardiogram is sinus with LEFT axis deviation and LEFT bundle branch block. Cardiac catheterization February 2016 showed adequate revascularization and normal ejection fraction, but in the setting of elevated BNP, bilateral infiltrates on chest x-ray and elevated troponins would recommend proceeding with RIGHT and LEFT heart catheterization. Patient is agreeable. Patient is to continue aspirin and Plavix. 2. Abnormal chest x-ray with possible pneumonia. Patient is on Levaquin. 3. Chronic kidney disease stage IV 4. Hypertension, continue Coreg and Norvasc. 5. Hyperlipidemia, on statin therapy 6. Diabetes mellitus Recommendations: Discussed with Dr. Gray. See above. at 0804
--- NOTE | 2017-03-21 08:10 | ACUTE CARE PROGRESS NOTE (QUA) ---
Progress Notes Subjective Date 03/21/17 Time 0809 Note Overall patient feels better, breathing is much more comfortable. Lungs are clear, heart rate regular. Abdomen is soft. Edema is much improved. Objective Findings Last VS-Temp:98.3 B/P:145/57 Pulse:57 Resp:20 SaO2:92 OXYGEN Last weight lbs:201 oz:0 K.173 Method:Bed Scales Assessment/Plan Problem List 1. Pneumonia Qualifiers: Pneumonia type: due to unspecified organism Laterality: bilateral Lung location : lower lobe of lung Qualified Code: J18.9 - Pneumonia, unspecified organism 2. Non-ST elevation myocardial infarction (NSTEMI) Patient condition Improving Plan: continue current care, consult flux plant operator This inpt stay is expected to cross 2 MNs from start of care Yes at 0810
--- NOTE | 2017-03-21 08:10 | ACUTE CARE PROGRESS NOTE (QUA) ---
Progress Notes Subjective Date 03/21/17 Time 0809 Note Overall patient feels better, breathing is much more comfortable. Lungs are clear, heart rate regular. Abdomen is soft. Edema is much improved. Objective Findings Last VS-Temp:98.3 B/P:145/57 Pulse:57 Resp:20 SaO2:92 OXYGEN Last weight lbs:201 oz:0 K.173 Method:Bed Scales Assessment/Plan Problem List 1. Pneumonia Qualifiers: Pneumonia type: due to unspecified organism Laterality: bilateral Lung location : lower lobe of lung Qualified Code: J18.9 - Pneumonia, unspecified organism 2. Non-ST elevation myocardial infarction (NSTEMI) Patient condition Improving Plan: continue current care, consult lifestyle director This inpt stay is expected to cross 2 MNs from start of care Yes at 0810
--- NOTE | 2017-03-21 11:43 | RADIOLOGY REPORT PS360 ---
CARDIAC CATHETERIZATION DATE OF CATHETERIZATION:03/21/2017 10:29 AM PROCEDURES: 1. Right heart catheterization 2. Left heart catheterization 3. Left ventriculogram 4. Selective coronary angiogram 5. Selective engagement of the left internal mammary artery to the LAD 6. Selective engagement of the saphenous vein graft to the first and second obtuse marginal artery 7. Selective engagement of the saphenous vein graft to the posterior descending artery off the right coronary artery 8. Drug-eluting stent deployment to the posterior descending artery via the saphenous vein graft 9. Angioplasty to the posterior lateral ventricular branch via the saphenous vein graft INDICATION FOR TEST: 1. Acute non-ST elevation myocardial infarction 2. Coronary artery disease 3. History of coronary bypass surgery 4. Pulmonary hypertension 5. Congestive heart failure with pulmonary edema Informed consent was obtained prior to the procedure. COMPLICATIONS: None ESTIMATED BLOOD LOSS: Less than 10 ml. TECHNIQUE: One percent lidocaine was used to anesthetize the right groin. The right femoral artery and vein was accessed via the Seldinger technique. A 4 Moldovan and 7 Moldovan sheath were placed in the artery vein respectively. A JL 4 JR4 multipurpose catheter LCB catheter were used for the diagnostic coronary angiography. A [place]Nathan catheter was floated into the pulmonary artery under fluoroscopic and hemodynamic guidance. At the end of the diagnostic angiogram 9000 units of heparin was administered creating an ACT of 289. An additional 2000 units of heparin was administered. A 4 Moldovan arterial sheath was exchanged for a 6 Moldovan sheath and a multipurpose 6 Moldovan guide catheter was placed in the saphenous vein graft. A choice PT wire was placed in the posterior descending artery however primary stenting cannot be performed therefore a 2 mm x 10 mm balloon was attempted to inflate on several occasions however this continued to watermelon seed. 2.25 x 12 mm resolute Edgardo stent was deployed at 22 fariha reducing the stenosis to less than 20%. There was plaque shifting into the posterior lateral ventricular branch therefore the wire was pulled back and placed into the posterior lateral ventricular branch and a 2 mm x 8 mm balloon was taken to 22 fariha to post dilate. Excellent angiographic results were obtained with wide patency of both PDA and PLVB vessels. The closing ACT was 316 seconds. At the end of the procedure the groin is reprepped closure changed arterial sheath was removed good hemostasis was achieved using Perclose device patient transferred to the postop holding area in stable condition for venous sheath removal ANGIOGRAPHIC RESULTS: 1. The left main artery was not visualized due to patient's chronic renal failure and review of last years heart catheter 2. The left anterior descending artery was not visualized but known to be occluded at mid segment 3. The circumflex artery was not visualized but known to be proximally occluded 4. The right coronary artery visualized known to be proximally occluded and last year's heart catheter 5. The RAMON ventriculogram reveals ejection fraction 55% with inferior wall hypokinesis 6. The left ventricular end-diastolic pressure 18 20 mmHg 7. Left internal mammary artery to the LAD is widely patent 8. Saphenous vein graft to the first and second obtuse marginal artery is widely patent. This is a skip graft with both limbs being patent 9. The saphenous vein graft to the distal dominant right coronary artery is widely patent. The posterior descending artery is a large vessel and has a proximal 99% stenosis while the posterior lateral ventricular branch has an ostial 50-60% stenosis 10. Right atrial pressure 10 mmHg 11. Right ventricular pressure 40/20 mmHg 12. Pulmonary artery pressure 35/20 mmHg 13. Pulmonary artery occlusion pressure 20 mmHg 14. Right atrial pressure 71% 15. Pulmonary artery saturation 70% IMPRESSION: 1. Moderate pulmonary hypertension as described above 2. Elevated left-sided filling pressures consistent with diastolic dysfunction and left-sided fluid overload 3. Severe [place] coronary arteries as described from heart catheter last year 4. Patent CHARLES to the LAD 5. Patent saphenous vein graft to the first obtuse marginal artery then skipping to the second obtuse marginal artery 6. Patent saphenous vein graft to the distal dominant right coronary artery which supplied a critically disease large posterior descending artery and a moderately diseased posterior lateral ventricular branch 7. Successful stenting of the critically disease posterior descending artery via the saphenous vein graft. 99% stenosis reduced to 10% with 1 drug-eluting stent 8. Successful angioplasty of the posterior lateral ventricular branch via the saphenous vein graft 9. Preserved ejection fraction with regional wall motion abnormality 10. Patient is known to have normal renal arteries from last year's heart catheter PLAN: 1. Aspirin Plavix one year 2. Patient would benefit from diuresis 3. Avoidance of tobacco products 4. Risk factor modification 5. Cardiac rehabilitation 6. LDL less than 55
[2017-03-21 12:22] LABS: ARTERIAL O2 SAT CATH LAB 70 % (90-100); VENOUS O2 SAT CATH LAB 71 % (75-80)
[2017-03-22] VITALS (7 sets, daily range): BP systolic 109–172; BP diastolic 53–63
--- NOTE | 2017-03-22 08:04 | ACUTE CARE PROGRESS NOTE (QUA) ---
Progress Notes Subjective Date 03/22/17 Time 0758 Note 66 yo WF at bedside in NAD eating breakfast. No complaints and states she is feeling much better. Objective Findings Last VS-Temp:99.5 B/P:172/53 Pulse:63 Resp:17 SaO2:99 OXYGEN Last weight lbs:200 oz:1 K.747 Method:Bed Scales Exam General appearance: alert, awake, no acute distress Cardiovascular: regular rate & rhythm Respiratory: Decreased breath sounds bilaterally with some expiratory wheezing during cough. Extremities: moves all Neuro: alert, intact, oriented Reviewed: medications, vital signs, lab results Assessment/Plan Problem List 1. Pneumonia Qualifiers: Pneumonia type: due to unspecified organism Laterality: bilateral Lung location : lower lobe of lung Qualified Code: J18.9 - Pneumonia, unspecified organism 2. Non-ST elevation myocardial infarction (NSTEMI) Assessment/Plan: Cath yesterday with DAVY to PDA and angioplasty to PLVB, both via SVG. Continue ASA/Plavix. Patient condition Stable Plan: Continue DAPT, coreg and norvasc. Increased lasix due to elevated LVEDP. Will need BMP next week. Follow up in one week. OK for discharge home from Cardiology standpoint. This inpt stay is expected to cross 2 MNs from start of care Yes at 0803
--- NOTE | 2017-03-22 08:47 | DISCHARGE SUMMARY STANDARD ---
See Addendum Demographics Admit date: 03/19/17 Discharge date: 03/22/17 History of present illness History of present illness 66-year-old female with history of coronary artery disease presented to the emergency department yesterday after developing nausea and vomiting. Patient and her family report on morning patient had a fall at home. She does not recall how she fell. On and Tuesday the patient complained of jaw pain. She has a history of coronary artery disease and coronary artery bypass graft procedure. Yesterday the patient developed vomiting and requested she be brought to the emergency department. In the emergency department she underwent workup and was found to have [address] scan of her abdomen showed lower lobe infiltrates and troponin was abnormal on labs. Troponin is risen since admission. Dr. Gray was notified and patient was given additional beta jayro. She has been admitted for IV antibiotics. Patient herself denies any recent fevers, chills or sensation of shortness of breath. Vomiting has ceased and she is eating breakfast this morning. She has not had any further jaw pain and denies ever having any chest pain or LEFT arm pain. Her daughter reports that many years ago and her coronary artery disease was first detected it presented as LEFT arm pain radiating up into the jaw. The above per Dr. Meraz. Hospital Course Hospital Course: Patient admitted to acute care with telemetry. She had a positive troponin and ruled in for NSTEMI. Cardiology was consulted and she was taken to the laboratory manager. DAVY was placed in PDA and angioplasty to PLVB, both via SVG. She has done well with no further chest/jaw pain or shortness of breath. Discharge home on DAPT, Coreg and Norvasc. Increase Lasix to BID. See medication reconciliation for complete list. FU with Dr. Gray in one week. FU with myself on Tuesday. Discharge diagnoses Problem List 1. Pneumonia 2. Non-ST elevation myocardial infarction (NSTEMI) Medications Medications: Discharge meds are as noted. Follow up Follow up in office in: 7 DAYS with: Elpidio Gray MD at 0850
--- NOTE | 2017-03-22 08:52 | ACUTE CARE PROGRESS NOTE (QUA) ---
Progress Notes Subjective Date 03/22/17 Time 0745 Note Patient is sitting on side of the bed eating breakfast. She feels well with no complaints. Alert and oriented x3. Rate and rhythm regular. Lung sounds clear and equal. Patient/family reports: no complaints Nursing reports: no complaints Objective Findings Last VS-Temp:99.5 B/P:172/53 Pulse:63 Resp:17 SaO2:99 OXYGEN Last weight lbs:200 oz:1 K.747 Method:Bed Scales Assessment/Plan Problem List 1. Pneumonia Qualifiers: Pneumonia type: due to unspecified organism Laterality: bilateral Lung location : lower lobe of lung Qualified Code: J18.9 - Pneumonia, unspecified organism 2. Non-ST elevation myocardial infarction (NSTEMI) Patient condition Improving, Stable Plan: initiate discharge plan This inpt stay is expected to cross 2 MNs from start of care Yes at 0829
[2017-03-22] MEDS ORDERED: LEVAQUIN750 MG PO (09:46)
--- OUTSIDE RECORDS SUMMARY | 2017-03-30 17:45 | External Medical Summary Rpt ---
Author Author , YONAS BRANHAM Address Unknown Phone [email or web address] Immunization Name Date Rout CVX Reac Dose Comm Prov Is Faci e tion ent ider Refu lity Give sed n Infl 09-2 0.5 Hist PD20 No PD20 uenz 2-20 mL oric 255 255 a 17 al Quad Info rmat W/Pr ion es - Sour ce Unsp ecif ied Tdap 02-2 115 999 Hist H149 No H149 , 0-20 oric Adso 07 al rbed Info rmat ion - Sour ce Unsp ecif ied PPV2 12-1 33 999 Hist H149 No H149 3 5-20 oric 06 al Info rmat ion - Sour ce Unsp ecif ied Hep 12-0 43 999 Hist H149 No H149 B, 5-19 oric adul 97 al t Info rmat ion - Sour ce Unsp ecif ied Hep 07-0 43 999 Hist H149 No H149 B, 2-19 oric adul 97 al t Info rmat ion - Sour ce Unsp ecif ied Hep 05-3 43 999 Hist H149 No H149 B, 0-19 oric adul 97 al t Info rmat ion - Sour ce Unsp ecif ied Td 03-0 Intr 9 999 Hist H149 No H149 (fernanda 4-19 amus oric lt), 97 cula al r Info adso rmat rbed ion - Sour ce Unsp ecif ied
--- OUTSIDE RECORDS SUMMARY | 2017-03-30 17:45 | External Medical Summary Rpt ---
Author Author , YONAS BRANHAM Address Unknown Phone [email or web address] Providers Care Acid Blower Name Role Phone [facility], Unavailable Unavailable [facility] Unavailable Unavailable SERVICE, [facility] Unavailable Unavailable SERV[facility], [facility] JESUS OROSCO Unavailable Unavailable [facility] Unavailable Unavailable [facility] Devan Lee MD, Unavailable Unavailable [facility] Unavailable Unavailable SERVICES, [facility] KERA FINLEY, Unavailable Unavailable KERA FINLEY, Unavailable Unavailable [facility]ER[facility] LUU, GASTON LUU Unavailable Unavailable Purpose Continuity of Care Document - 08-23-2012 through 2016 Problems Code Diagnosis DOS Provider Status 67092 DIAB W/O 12-09-2012 [facility] COMP TYPE EMERGENCY II/UNS NOT SERVICES STATED UNCNTRL 2511 OTHER 12-09-2012 [facility] SPECIFIED AMBULANCE HYPOGLYCEMI SERVICE A 2512 HYPOGLYCEMI 12-09-2012 [facility] A, EMERGENCY UNSPECIFIED SERVICES 60207 OTHER 12-09-2012 [facility] ALTERATION [place] [id number] AFTER-CATAR 10-10-2012 [facility] [facility] VISION 26925 DIAB 09-12-2012 [facility] W/[facility] TYPE II/UNS NOT UNCNTRL 3688 OTHER 09-12-2012 [facility] SPECIFIED [facility] VISUAL INSTITUTE DISTURBANCE S V431 LENS 09-12-2012 [facility] REPLACED BY [facility] OTHER INSTITUTE MEANS 83171 MODERATE 08-28-2012 [facility] NONPROLIFER ANG ATIVE DIABETIC RETINOPATHY 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 250.01 250.01 DIAB 08-23-2012 [facility], TYPE Hospital I [JUVENILE TYPE], NOT UNCNTRLD 401.9 401.9 08-23-2012 [facility] 521.00 521.00 08-23-2012 [facility] CARIES 528.2 528.2 ORAL 08-23-2012 [facility] 5282 ORAL 08-23-2012 [facility] EMERGENCY SERVICES 724.3 724.3 08-23-2012 [facility] 7243 SCIATICA 08-23-2012 [facility] Allergies, Adverse Reactions, Alerts Type Drug Allergy Adverse Reaction to Substance Substance Reaction Severity Morphine NA-NAUSEA/VOMITING Mild Hydrocodone NA-NAUSEA/VOMITING Mild Latex I-SWELLS/RED/HIVES Intermediate Medications Na ND Rx Da Fi Fi Am Da Di Ph RX Ph St me C No te ll ll ou ys ag ar # ys at rm s nt no ma ic us Or Da si cy ia de te s n re d SO 00 06 0 No DI 40 -2 UM 97 2- Lo 98 20 ng CH 30 13 er LO 9 RI Ac DE ti ve 0. 9% SO BRANDI TI ON Sa 63 06 0 No li 80 -2 ne 70 2- Lo 10 20 ng Fl 07 13 er us 5 h Ac 10 ti ML ve Sy ri ng e Vital Signs 12-09-2012 13:30 Name Value Interpretat Reference Comment ion Range BP 62 mm[Hg] Diastolic BP Systolic 118 mm[Hg] Heart 57 /min Rate/Pulse O2% 99 % Respiratory 18 /min Rate 12-09-2012 10:10 Name Value Interpretat Reference Comment ion Range BP 77 mm[Hg] Diastolic BP Systolic 136 mm[Hg] Heart 52 /min Rate/Pulse O2% 100 % Respiratory 20 /min Rate 08-23-2012 18:34 Name Value Interpretat Reference Comment ion Range Body 97.4 [degF] Temperature BP 63 mm[Hg] Diastolic BP Systolic 138 mm[Hg] Heart 55 /min Rate/Pulse O2% 98 % Respiratory 20 /min Rate 08-23-2012 18:16 Name Value Interpretat Reference Comment ion Range BP 61 mm[Hg] Diastolic BP Systolic 135 mm[Hg] Heart 56 /min Rate/Pulse O2% 97 % Respiratory 20 /min Rate Results Labs Lab Lab Date Result Refere Interp Status Commen Order Detail nces retati t Range on Urinalysis dipstick W Reflex Microscopic panel in Urine (03-19-2017 18:05) Bacteri 4+ O complet a 017 ed [Presen 18:05 ce] in Urine sedimen t by Light microsc opy Hyaline 03-19-2 5-10 NONE complet casts 017 ed [Presen 18:05 ce] in Urine sedimen t by Light microsc opy Erythro 5-10 0 complet cytes 017 ed [Presen 18:05 ce] in Urine sedimen t by Light microsc opy Epithel 03-19- 5-10 0#/hp complet ial 017 f - ed cells.s 18:05 5#/hp quamous f [Presen ce] in Urine sedimen t by Microsc opy high power field Leukocy 20-50 O complet herve 017 wbc/hpf ed [#/volu 18:05 me] in Urine Urinalysis dipstick W Reflex Microscopic panel in Urine (03-19-2017 18:05) Appeara CLOUDY CLEAR complet nce of 017 ed Urine 18:05 Bilirub NEGATIV NEG complet in 017 E ed [Presen 18:05 ce] in Urine by Test strip Erythro 2+ NEG Abnorma complet cytes 017 l ed [Presen 18:05 ce] in Urine Color YELLOW YELLOW complet of 017 ed Urine 18:05 Ketones NEGATIV NEG complet 017 E ed [Presen 18:05 ce] in Urine by Automat ed test strip Mucus TRACE NEG Abnorma complet [Presen 017 l ed ce] in 18:05 Urine sedimen t by Light microsc opy Nitrite NEGATIV NEG complet 017 E ed [Presen 18:05 ce] in Urine by Test strip Urobili 1.0 NEG complet nogen 017 ed [Presen 18:05 ce] in Urine by Test strip Hemoglobin A1c in Blood (03-16-2017 10:36) Hemoglo 6.9 % 0.0% Normal complet bin A1c 017 - ed in 10:36 7.0% Blood URINALYSIS/COMPLETE (12-09-2012 13:05) URINE YELLOW YELLOW complet COLOR 013 ed 13:05 URINE CLEAR CLEAR complet APPEARA 013 ed NCE 13:05 URINE 06-22-2 NEGATIV NEG complet GLUCOSE 013 E ed - 13:05 DIPSTIC K URINE 06-22-2 NEGATIV NEG complet BILIRUB 013 E ed IN - 13:05 DIPSTIC K URINE 06-22-2 NEGATIV NEG complet KETONE 013 E mg/dL ed 13:05 URINE 06-22-2 1.010 1.005-1 complet SPECIFI 013 UNK .030 ed C 13:05 GRAVITY URINE 06-22-2 NEGATIV NEG complet BLOOD 013 E ed 13:05 URINE 06-22-2 7.0 UNK 5.0-8.5 complet PH 013 ed 13:05 URINE 06-22-2 NEGATIV NEG complet PROTEIN 013 E mg/dL ed - 13:05 DIPSTIC K URINE 06-22-2 0.2 NEG complet UROBILI 013 E.U./dL ed NOGEN - 13:05 DIPSTIC K URINE 06-22-2 NEGATIV NEG complet NITRATE 013 E ed - 13:05 DIPSTIC K URINE 06-22-2 NEGATIV NEG complet LEUK 013 E ed ESTERAS 13:05 E URINE 06-22-2 RARE 0 complet RBC 013 rbc/hpf ed 13:05 URINE 06-22-2 3-5 O complet WBC 013 wbc/hpf ed 13:05 URINE 06-22-2 3-5 0-5 complet SQUAMOU 013 #/hpf ed S CELLS 13:05 URINE 06-22-2 20-50 NONE complet HYALINE 013 #/lpf ed CAST 13:05 COMPREHENSIVE METABOLIC PANEL (12-09-2012 12:02) Glucose 12-09-2 86 74-106 complet 013 mg/dL ed Bld-mCn 12:02 c BUN 12-09-2 42 7-18 complet Bld-mCn 013 mg/dL ed c 12:02 Creat 12-09-2 1.9 0.6-1.0 complet SerPl-m 013 mg/dL ed Cnc 12:02 ESTIMAT 12-09-2 40 50-200 complet ED 013 ML/MIN ed CREATIN 12:02 INE CLEARAN CE GFR 12-09-2 27 59- complet (ESTIMA 013 ML/MIN ed BRIAN) 12:02 Sodium 12-09-2 139 136-145 complet SerPl-s 013 mmoL/L ed Cnc 12:02 Potassi 12-09-2 5.2 3.5-5.1 complet um 013 mmoL/L ed SerPl-s 12:02 Cnc Chlorid 104 98-107 complet e 013 mmoL/L ed SerPl-s 12:02 Cnc CO2 28 21.0-32 complet SerPl-s 013 mmoL/L .0 ed Cnc 12:02 Calcium 12-09- 8.7 8.5-10. complet 013 mg/dL 1 ed SerPl-m 12:02 Cnc Prot 12-09-2 6.6 6.4-8.2 complet SerPl-m 013 gm/dL ed Cnc 12:02 Albumin 12-09- 3.6 3.4-5.0 complet 013 gm/dL ed SerPl-m 12:02 Cnc Globuli 3.0 1.3-3.2 complet n 013 gm/dL ed Ser-mCn 12:02 c Albumin 12-09- 1.2 UNK 1.1-1.8 complet /Glob 013 ed SerPl-m 12:02 Rto Bilirub 0.3 0.2-1.0 complet 013 mg/dL ed SerPl-m 12:02 Cnc AST 17 U/L 15-37 complet SerPl-c 013 ed Cnc 12:02 ALT 33 U/L 30-65 complet SerPl-c 013 ed Cnc 12:02 ALP 69 U/L 50-136 complet SerPl-c 013 ed Cnc 12:02 CBC with AUTO DIFF (12-09-2012 12:02) WBC # 12-09-2 9.6 4.8-10. complet Bld 013 K/MM3 8 ed Auto 12:02 RBC # 12-09-2 3.70 4.2-5.4 complet Bld 013 M/mm3 ed Auto 12:02 Hgb 12-09-2 11.3 12.2-16 complet Bld-mCn 013 g/dL .2 ed c 12:02 Hct Fr 34.8 % 37.0-47 complet Bld 013 .0 ed 12:02 MCV RBC 94.0 fl 82.2-97 complet 013 .8 ed 12:02 MCH RBC 06-22-2 30.4 pg 27-31.2 complet Qn 013 ed Auto 12:02 MEAN 22-2 32.3 31.8-35 complet CORPUSC 013 g/dl .4 ed ULAR 12:02 HGB CONC RDW RBC 22-2 13.1 % 11.5-17 complet Auto 013 .5 ed 12:02 Platele 22-2 323 142-424 complet t Bld 013 K/mm3 ed Ql 12:02 Manual MEAN 12-09-2 7.9 fl 7.4-10. complet PLATELE 013 4 ed T 12:02 VOLUME Granulo -22-2 78.1 % 37.0-80 complet cytes 013 .0 ed Fr Bld 12:02 Auto LYMPH % -22-2 14.2 % 10-50.0 complet 013 ed 12:02 Monocyt 06-22-2 5.9 % 1.7-9.3 complet es Fr 013 ed Bld 12:02 Auto Eosinop -22-2 1.5 % 0.1-12. complet hil Fr 013 0 ed Bld 12:02 Auto Basophi -22-2 0.3 % 0.1-2.0 complet ls Fr 013 ed Bld 12:02 Auto Granulo 06-22-2 7.5 1.8-7.8 complet cytes # 013 K/mm3 ed Bld 12:02 Auto Lymphoc -22-2 1.4 0.7-4.5 complet ytes Fr 013 K/mm3 ed Bld 12:02 Auto Monocyt 06-22-2 0.6 0.1-1.0 complet es # 013 K/mm3 ed Bld 12:02 Auto Eosinop 06-22-2 0.2 0.0-0.4 complet hil # 013 K/mm3 ed Bld 12:02 Auto Basophi 06-22-2 0.0 0-0.2 complet ls # 013 K/MM3 ed Bld 12:02 Auto Glucose BldC Glucomtr-[facility] (12-09-2012 10:23) Glucose 12-09-2 85 70-110 complet BldC 013 mg/dl ed Glucomt 10:23 r-[facility] URINALYSIS/COMPLETE (08-23-2012 18:04) URINE YELLOW YELLOW complet COLOR 013 ed 18:04 URINE 08-23-2 CLEAR CLEAR complet APPEARA 013 ed NCE 18:04 URINE 08-23-2 NEGATIV NEG complet GLUCOSE 013 E ed - 18:04 DIPSTIC K URINE 08-23-2 NEGATIV NEG complet BILIRUB 013 E ed IN - 18:04 DIPSTIC K URINE 06-2 NEGATIV NEG complet KETONE 013 E mg/dL ed 18:04 URINE 08-23-2 1.015 1.005-1 complet SPECIFI 013 UNK .030 ed C 18:04 GRAVITY URINE 08-23-2 NEGATIV NEG complet BLOOD 013 E ed 18:04 URINE 08-23-2 6.0 UNK 5.0-8.5 complet PH 013 ed 18:04 URINE 08-23-2 NEGATIV NEG complet PROTEIN 013 E mg/dL ed - 18:04 DIPSTIC K URINE 06-2 0.2 NEG complet UROBILI 013 E.U./dL ed NOGEN - 18:04 DIPSTIC K URINE 08-23-2 NEGATIV NEG complet NITRATE 013 E ed - 18:04 DIPSTIC K URINE 08-23-2 NEGATIV NEG complet LEUK 013 E ed ESTERAS 18:04 E URINE 06-2 OCC 0 complet RBC 013 rbc/hpf ed 18:04 URINE 08-23-2 3-5 0-5 complet SQUAMOU 013 #/hpf ed S CELLS 18:04 URINE 08-23-2 OCC NONE complet HYALINE 013 #/lpf ed CAST 18:04 Procedures Procedure DOS Code Location Performer Comment [facility]ICE SERVICE STATUTE MILE [facility] A0427 [facility] SERVICE 3 AMBULANCE AMBULANCE ALS SERVICE SERVICE EMERGENCY TRANSPORT LEVEL 1 POST-PURA 33115 [facility] 3 [facility]TH 42887 [facility] 3 EYE [facility] XM&EVAL INSTITUTE COMPRE NEW PT 1/> VST COMPUTERI 58801 [facility] CASTANEDA 3 ANG ANG OPHTHALMI C IMAGING RETINA Encounters Encounter Start End Date Code Location Performer Type Date Emergency HARPER Gamble MD (ER) 3 09:58 3 13:44 [facility] EMERGENCY 37124 [facility] 3 3 EMERGENCY DEPARTMEN SERVICES T VISIT HIGH/URGE NT SEVERITY OFFICE 16085 K[facility] DAVIS 3 3 ANG TUSHAR T NEW 45 MINUTES Emergency HARPER Lee MD (ER) 3 17:47 3 18:41 [facility] EMERGENCY 07340 [facility] LEE 3 3 EMERGENCY AWA DEPARTMEN SERVICES T VISIT HIGH/URGE NT SEVERITY
--- OUTSIDE RECORDS SUMMARY | 2017-03-30 17:45 | External Medical Summary Rpt ---
Author Author , YONAS BRANHAM Address Unknown Phone [email or web address] Care Team Providers Care Parts Administrator Name Role Phone [facility], Unavailable Unavailable [facility] CADEN [facility] Unavailable Unavailable SERVICE, [facility] Unavailable Unavailable SERVICE, [facility] JESUS AWA, JESUS Unavailable Unavailable [facility] Un[facility] Unavailable [facility], [facility] Unavailable Unavailable SERVICES, [facility] KERA FINLEY, Unavailable Unavailable KERA FINLEY, Unavailable Unavailable KERA LUU, GASTON LUU Unavailable Unavailable Purpose Continuity of Care Document - 08-23-2012 through 2016 Problems Code Diagnosis DOS Provider Status 06365 DIAB W/O 12-09-2012 [facility] COMP TYPE EMERGENCY II/UNS NOT SERVICES STATED UNCNTRL 2511 OTHER 12-09-2012 [facility] SPECIFIED AMBULANCE HYPOGLYCEMI SERVICE A 2512 HYPOGLYCEMI 12-09-2012 [facility] A, EMERGENCY UNSPECIFIED SERVICES 03924 OTHER 12-09-2012 [facility] [place] [address] AFTER-CATAR 10-10-2012 [place] [facility] VISION [address]998 DIAB 09-12-2012 [place] W/[facility]TH [facility] TYPE II/UNS NOT UNCNTRL 3688 OTHER 09-12-2012 [place] SPECIFIED EYE VISUAL INSTITUTE DISTURBANCE S V431 LENS 09-12-2012 [place] REPLACED BY EYE OTHER INSTITUTE MEANS 16234 MODERATE 08-28-2012 [facility] NONPROLIFER ANG ATIVE DIABETIC RETINOPATHY 71848 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 5282 ORAL 08-23-2012 [facility] 7243 SCIATICA 08-23-2012 [facility] Procedures Procedure DOS Code Location Performer Comment AMB A0427 [facility] SERVICE 3 AMBULANCE AMBULANCE ALS SERVICE SERVICE EMERGENCY TRANSPORT LEVEL 1 GROUND A0425 [facility] MILEAGE 3 AMBULANCE AMBULANCE PER SERVICE SERVICE STATUTE MILE POST-PURA 44220 [facility] 3 [facility] SUR[facility] OPHTH [address] [facility] 3 EYE [facility] XM&EVAL INSTITUTE COMPRE NEW PT 1/> VST COMPUTERI 92214 [facility] 3 ANG ANG OPHTHALMI C IMAGING RETINA Encounters Encounter Start End Date Code Location Performer Type Date EMERGENCY 55841 [facility] 3 3 EMERGENCY DEPARTMEN SERVICES T VISIT HIGH/URGE NT SEVERITY OFFICE 92288 [facility] DAVIS 3 3 ANG TUSHAR T SHELLEY 45 MINUTES EMERGENCY 55919 [facility] LEE 3 3 EMERGENCY AWA DEPARTMEN SERVICES T VISIT HIGH/URGE NT SEVERITY
--- OUTSIDE RECORDS SUMMARY | 2017-03-30 17:45 | External Medical Summary Rpt ---
Author Author , YONAS BRANHAM Address Unknown Phone [email or web address] Immunization Name Date Rout CVX Reac Dose [...]
--- OUTSIDE RECORDS SUMMARY | 2017-03-30 17:45 | External Medical Summary Rpt ---
Author Author , YONAS BRANHAM Address Unknown Phone [email or web address] Care Team Providers Care Physician Assistant Psychiatry Name Role Phone [facility] NE[facility], Unavailable Unavailable [facility] NEGRE[facility] Unavailable Unavailable SERVICE, [facility] Unavailable Unavailable SERVICE, [facility] JESUS OROSCO Unavailable Unavailable [facility] Unavailable Unavailable IN[facility], [facility] Devan Lee MD, Unavailable Unavailable [facility] Unavailable Unavailable SERVICES, [facility] KERA FINLEY, Unavailable Unavailable KERA FINLEY, Unavailable Unavailable KERA LUU, GASTON LUU Unavailable Unavailable Purpose Continuity of Care Document - 08-23-2012 through 2016 Problems Code Diagnosis DOS Provider Status 53688 DIAB W/O 12-09-2012 [facility] COMP TYPE EMERGENCY II/UNS NOT SERVICES STATED UNCNTRL 2511 OTHER 12-09-2012 [facility] SPECIFIED AMBULANCE HYPOGLYCEMI SERVICE A 2512 HYPOGLYCEMI 12-09-2012 [facility] A, EMERGENCY UNSPECIFIED SERVICES 09223 OTHER 12-09-2012 [facility] ALTERATION [place] [address] AFTER-CATAR 10-10-2012 [facility] VISION 46947 DIAB 09-12-2012 [facility] TYPE II/UNS NOT UNCNTRL 3688 OTHER 09-12-2012 [facility] SPECIFIED [facility] VISUAL INSTITUTE DISTURBANCE S V431 LENS 09-12-2012 [facility] REPLACED BY EYE OTHER INSTITUTE MEANS 47622 MODERATE 08-28-2012 [facility] NONPROLIFER ANG ATIVE DIABETIC RETINOPATHY 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 521.00 521.00 08-23-2012 [facility] CARIES 528.2 528.2 ORAL 08-23-2012 [facility] 5282 ORAL 08-23-2012 [facility] EMERG[facility]Y SERVICES 724.3 724.3 08-23-2012 [facility] 7243 SCIATICA 08-23-2012 [facility] Allergies, Adverse Reactions, Alerts Type [...] K/MM3 ed Bld 12:02 Auto Glucose BldC Glucomtr-[facility] (12-09-2012 10:23) Glucose 12-09-2 85 70-110 complet BldC 013 mg/dl ed Glucomt 10:23 r-[facility] URINALYSIS/COMPLETE (08-23-2012 18:04) URINE YELLOW YELLOW complet [...] DOS Code Location Performer Comment [facility] PER SERVICE SERVICE STATUTE [facility] A0427 [facility] SERVICE 3 AMBULANCE AMBULANCE ALS SERVICE SERVICE EMERGENCY TRANSPORT LEVEL 1 [facility] 8[facility]80 [facility] 12856 [facility] 3 EYE [facility]EN XM&EVAL INSTITUTE COMPRE NEW PT 1/> VST COMPUTERI 57616 [facility] CASTANEDA 3 ANG ANG OPHTHALMI C IMAGING RETINA Encounters Encounter Start End Date Code Location Performer Type Date Emergency HARPER Gamble MD (ER) 3 09:58 3 13:44 [facility] EMERGENCY 07130 [facility] 3 3 EMERGENCY DEPARTMEN SERVICES T VISIT HIGH/URGE NT SEVERITY OFFICE 25303 KERA DAVIS 3 3 ANG TUSHAR T NEW 45 MINUTES Emergency HARPER Lee MD (ER) 3 17:47 3 18:41 [facility] EMERGENCY 05696 [facility] 3 3 EMERGENCY AWA DEPARTMEN SERVICES T VISIT HIGH/URGE NT SEVERITY
--- OUTSIDE RECORDS SUMMARY | 2017-03-30 17:45 | External Medical Summary Rpt ---
Author Author , YONAS BRANHAM Address Unknown Phone [email or web address] Care Team Providers Care Fine Arts Chair Name Role Phone [facility] CADEN, Unavailable Unavailable L[facility] CADEN [facility] Unavailable Unavailable SERVICE, [facility] Unavailable Unavailable SERVICE, [facility] JESUS AWA, JESUS Unavailable Unavailable [facility] Unavailable [facility], [facility] Unavailable Unavailable SERVICES, [facility] KERA FINLEY, Unavailable Unavailable KERA FINLEY, Unavailable Unavailable KERA LUU, GASTON LUU Unavailable Unavailable Purpose Continuity of Care Document - 08-23-2012 through 2016 Problems Code Diagnosis DOS Provider Status 36744 DIAB W/O 12-09-2012 [facility] COMP TYPE EMERGENCY II/UNS NOT SERVICES STATED UNCNTRL 2511 OTHER 12-09-2012 [facility] SPECIFIED AMBULANCE HYPOGLYCEMI SERVICE A 2512 HYPOGLYCEMI 12-09-2012 [facility] A, EMERGENCY UNSPECIFIED SERVICES 08299 OTHER 12-09-2012 [facility] [place] [address] AFTER-CATAR 10-10-2012 [facility] [facility] VISION 60150 DIAB 09-12-2012 [facility] [facility] TYPE II/UNS NOT UNCNTRL 3688 OTHER 09-12-2012 [facility] SPECIFIED [facility] VISUAL INSTITUTE DISTURBANCE S V431 LENS 09-12-2012 [place] REPLACED BY EYE OTHER INSTITUTE MEANS 77681 MODERATE 08-28-2012 [facility] NONPROLIFER ANG ATIVE DIABETIC RETINOPATHY 30251 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 5282 ORAL 08-23-2012 [facility] 7243 SCIATICA 08-23-2012 [facility] Procedures Procedure DOS Code Location Performer Comment AMB A0427 [facility] SERVICE 3 AMBULANCE AMBULANCE ALS SERVICE SERVICE EMERGENCY TRANSPORT LEVEL 1 GROUND A0425 [facility] MILEAGE 3 AMBULANCE AMBULANCE PER SERVICE SERVICE STATUTE MILE POST-PURA 33958 [facility] 3 [facility] SURGERY OPHTH 14749 [facility] 3 EYE CADEN XM&EVAL INSTITUTE COMPRE NEW PT 1/> VST COMPUTERI 02555 [facility] COTE ZED 3 ANG ANG OPHTHALMI C IMAGING RETINA Encounters Encounter Start End Date Code Location Performer Type Date EMERGENCY 75680 [facility] 3 3 EMERGENCY DEPARTMEN SERVICES T VISIT HIGH/URGE NT SEVERITY OFFICE 05641 KERA DAVIS 3 3 ANG TUSHAR T SHELLEY 45 MINUTES EMERGENCY 88999 [facility] 3 3 EMERGENCY AWA DEPARTMEN SERVICES T VISIT HIGH/URGE NT SEVERITY
--- OUTSIDE RECORDS SUMMARY | 2017-03-30 17:47 | External Medical Summary Rpt ---
Author Author [employer], [employer] Organization [employer] Address Unknown Phone Unavailable Results Glucose [Mass/volume] in Capillary blood by Glucometer Observa Value Referen Units Interpr Notes Date tion ce etation Range Glucose 70 - 110 mg/dl High No Oct 3 [Mass/vol informati 2017 6:41 ume] in on in AM Capillary source blood by data Glucomete r Basic metabolic panel in Blood Observa Value Referen Units Interpr Notes Date tion ce etation Range Urea 7 - 18 mg/dL High No Oct 3 nitrogen informati 2017 4:55 [Mass/vol on in AM ume] in source Serum or data Plasma Calcium 8.5 - mg/dL Low No Oct 3 [Mass/vol 10.1 informati 2017 4:55 ume] in on in AM Serum or source Plasma data Chloride 98 - 107 mmoL/L Normal No Oct 3 [Moles/vo informati 2017 4:55 lume] in on in AM Serum or source Plasma data Carbon 21.0 - mmoL/L Normal No Oct 3 dioxide, 32.0 informati 2017 4:55 total on in AM [Moles/vo source lume] in data Serum or Plasma Creatinin 0.55 - mg/dL High No Oct 3 e 1.02 informati 2017 4:55 [Mass/vol on in AM ume] in source Serum or data Plasma Creatinin 50 - 200 ML/MIN Low No Oct 3 e renal informati 2017 4:55 clearance on in AM source predicted data by Cockcroft -Gault formula Estimated 59- ML/MIN Low REFERENCE Oct 3 RANGE: 2017 4:55 glomerula >60 AM r ML/MIN/1. filtratio 73 SQUARE n rate METERSIf (GF this patient is -A merican, then multiply theresult by 1.210. Glucose 74 - 106 mg/dL High No Oct 3 [Mass/vol informati 2017 4:55 ume] in on in AM Serum or source Plasma data Potassium 3.5 - 5.1 mmoL/L Normal No Oct 3 informati 2017 4:55 [Moles/vo on in AM lume] in source Serum or data Plasma Sodium 136 - 145 mmoL/L Normal No Oct 3 [Moles/vo informati 2017 4:55 lume] in on in AM Serum or source Plasma data Glucose [Mass/volume] in Capillary blood by Glucometer Observa Value Referen Units Interpr Notes Date tion ce etation Range Glucose 70 - 110 mg/dl High No Oct 2 [Mass/vol informati 2017 8:38 ume] in on in PM Capillary source blood by data Glucomete r Glucose [Mass/volume] in Capillary blood by Glucometer Observa Value Referen Units Interpr Notes Date tion ce etation Range Glucose 70 - 110 mg/dl High No Oct 2 [Mass/vol informati 2017 4:39 ume] in on in PM Capillary source blood by data Glucomete r Activated clotting time in Blood by Coagulation assay Observa Value Referen Units Interpr Notes Date tion ce etation Range Activated 74 - 125 SEC High No Oct 2 clotting alert informati 2017 time in on in 10:20 AM Blood by source Coagulati data on assay Activated clotting time in Blood by Coagulation assay Observa Value Referen Units Interpr Notes Date tion ce etation Range Activated 74 - 125 SEC High No Oct 2 clotting alert informati 2017 time in on in 10:05 AM Blood by source Coagulati data on assay Oxygen saturation in Arterial blood Observa Value Referen Units Interpr Notes Date tion ce etation Range Oxygen 90 - 100 % Low No Oct 2 saturatio informati 2017 9:54 n in on in AM Arterial source blood data VENOUS O2 SAT [employer] Observa Value Referen Units Interpr Notes Date tion ce etation Range VENOUS 71 75 - 80 % Low No Oct 2 O2 SAT informa 2017 CATH tion in 9:54 AM LAB source data Basic metabolic panel in Blood Observa Value Referen Units Interpr Notes Date tion ce etation Range Urea 7 - 18 mg/dL High No Oct 2 nitrogen informati 2017 6:20 [Mass/vol on in AM ume] in source Serum or data Plasma Calcium 8.5 - mg/dL Normal No Oct 2 [Mass/vol 10.1 informati 2017 6:20 ume] in on in AM Serum or source Plasma data Chloride 98 - 107 mmoL/L Normal No Oct 2 [Moles/vo informati 2017 6:20 lume] in on in AM Serum or source Plasma data Carbon 21.0 - mmoL/L Normal No Oct 2 dioxide, 32.0 informati 2017 6:20 total on in AM [Moles/vo source lume] in data Serum or Plasma Creatinin 0.55 - mg/dL High No Oct 2 e 1.02 informati 2017 6:20 [Mass/vol on in AM ume] in source Serum or data Plasma Creatinin 50 - 200 ML/MIN Low No Oct 2 e renal informati 2017 6:20 clearance on in AM source predicted data by Cockcroft -Gault formula Estimated 59- ML/MIN Low REFERENCE Oct 2 RANGE: 2017 6:20 glomerula >60 AM r ML/MIN/1. filtratio 73 SQUARE n rate METERSIf (GF this patient is -A merican, then multiply theresult by 1.210. Glucose 74 - 106 mg/dL High No Oct 2 [Mass/vol informati 2017 6:20 ume] in on in AM Serum or source Plasma data Potassium 3.5 - 5.1 mmoL/L Normal No Oct 2 informati 2017 6:20 [Moles/vo on in AM lume] in source Serum or data Plasma Sodium 136 - 145 mmoL/L Normal No Oct 2 [Moles/vo informati 2017 6:20 lume] in on in AM Serum or source Plasma data Lipid 1996 panel in Serum or Plasma Observa Value Referen Units Interpr Notes Date tion ce etation Range Cholester < 200 mg/dL No No Oct 2 ol informati informati 2017 6:20 [Moles/vo on in on in AM lume] in source source Unspecifi data data ed specimen Cholester 40 - 60 MG/DL Low No Oct 2 ol in HDL informati 2017 6:20 on in AM [Mass/vol source ume] in data Serum or Plasma Cholester 0 - 130 mg/dL Normal No Oct 2 ol in LDL informati 2017 6:20 on in AM [Mass/vol source ume] in data Serum or Plasma by calculati on Triglycer 30 - 200 mg/dL Normal No Oct 2 kay informati 2017 6:20 [Moles/vo on in AM lume] in source Serum or data Plasma Cholester 0 - 40 No Normal No Oct 2 ol in informati informati 2017 6:20 VLDL on in on in AM [Mass/vol source source ume] in data data Serum or Plasma CBC W Auto Differential panel in Blood Observa Value Referen Units Interpr Notes Date tion ce etation Range Basophils 0 - 0.2 K/MM3 Normal No Oct 2 informati 2016 6:20 [#/volume on in AM ] in source Blood by data Automated count Basophils 0.1 - 2.0 % Normal No Oct 2 /100 informati 2016 6:20 leukocyte on in AM s in source Blood by data Automated count Eosinophi 0.0 - 0.4 K/mm3 High No Mar 2 ls informati 2017 6:20 [#/volume on in AM ] in source Blood by data Automated count Eosinophi 0.1 - % Normal No Mar 2 ls/100 12.0 informati 2017 6:20 leukocyte on in AM s in source Blood by data Automated count Granulocy 1.8 - 7.8 K/mm3 High No Mar 2 herve informati 2016 6:20 [#/volume on in AM ] in source Blood by data Automated count Granulocy 37.0 - % Normal No Mar 2 herve/100 80.0 informati 2017 6:20 leukocyte on in AM s in source Blood by data Automated count Hematocri 37.0 - % Low No Mar 2 t [Volume 47.0 informati 2017 6:20 on in AM Fraction] source of Blood data Hemoglobi 12.2 - g/dL Low No Mar 2 n 16.2 informati 2016 6:20 [Mass/vol on in AM ume] in source Blood data Lymphocyt 0.7 - 4.5 K/mm3 Normal No Mar 2 es informati 2016 6:20 [#/volume on in AM ] in source Unspecifi data ed specimen by Automated count Lymphocyt 10 - 50.0 % Normal No Mar 2 es informati 2017 6:20 [#/volume on in AM ] in source Unspecifi data ed specimen by Automated count Erythrocy 27 - 31.2 pg Normal No Mar 2 te mean informati 2017 6:20 corpuscul on in AM ar source hemoglobi data n [Entitic mass] Erythrocy 31.8 - g/dl Normal No Mar 2 te mean 35.4 informati 2016 6:20 corpuscul on in AM ar source hemoglobi data n concentra tion [Mass/vol ume] by Automated count Erythrocy 82.2 - fl Normal No Oct 2 te mean 97.8 informati 2017 6:20 corpuscul on in AM ar volume source [Entitic data volume] by Automated count Monocytes 0.1 - 1.0 K/mm3 Normal No Oct 2 informati 2017 6:20 [#/volume on in AM ] in source Blood by data Automated count Monocytes 1.7 - 9.3 % Normal No Oct 2 /100 informati 2017 6:20 leukocyte on in AM s in source Blood by data Automated count Platelet 7.4 - fl Normal No Oct 2 mean 10.4 informati 2017 6:20 volume on in AM [Entitic source volume] data in Blood by Automated count Platelets 142 - 424 K/mm3 Normal No Oct 2 informati 2017 6:20 [#/volume on in AM ] in source Blood data Erythrocy 4.2 - 5.4 M/mm3 Low No Oct 2 herve informati 2017 6:20 [#/volume on in AM ] in source Amniotic data fluid Erythrocy 11.5 - % Normal No Oct 2 te 17.5 informati 2016 6:20 distribut on in AM ion width source [Entitic data volume] by Automated count Leukocyte 4.8 - K/MM3 High No Oct 2 s 10.8 informati 2017 6:20 [#/volume on in AM ] in source Blood data Glucose [Mass/volume] in Capillary blood by Glucometer Observa Value Referen Units Interpr Notes Date tion ce etation Range Glucose 70 - 110 mg/dl High No Oct 2 [Mass/vol informati 2017 6:00 ume] in on in AM Capillary source blood by data Glucomete r Glucose [Mass/volume] in Capillary blood by Glucometer Observa Value Referen Units Interpr Notes Date tion ce etation Range Glucose 70 - 110 mg/dl High No Oct 1 [Mass/vol informati 2017 8:29 ume] in on in PM Capillary source blood by data Glucomete r Glucose [Mass/volume] in Capillary blood by Glucometer Observa Value Referen Units Interpr Notes Date tion ce etation Range Glucose 70 - 110 mg/dl High No Oct 1 [Mass/vol informati 2017 4:46 ume] in on in PM Capillary source blood by data Glucomete r Glucose [Mass/volume] in Capillary blood by Glucometer Observa Value Referen Units Interpr Notes Date tion ce etation Range Glucose 70 - 110 mg/dl High No Oct 1 [Mass/vol informati 2017 ume] in on in 11:26 AM Capillary source blood by data Glucomete r Glucose [Mass/volume] in Capillary blood by Glucometer Observa Value Referen Units Interpr Notes Date tion ce etation Range Glucose 70 - 110 mg/dl High No Oct 1 [Mass/vol informati 2017 6:24 ume] in on in AM Capillary source blood by data Glucomete r CBC W Auto Differential panel in Blood Observa Value Referen Units Interpr Notes Date tion ce etation Range Basophils 0 - 0.2 K/MM3 Normal No Oct 1 informati 2017 6:09 [#/volume on in AM ] in source Blood by data Automated count Basophils 0.1 - 2.0 % Normal No Oct 1 /100 informati 2017 6:09 leukocyte on in AM s in source Blood by data Automated count Eosinophi 0.0 - 0.4 K/mm3 Normal No Oct 1 ls informati 2016 6:09 [#/volume on in AM ] in source Blood by data Automated count Eosinophi 0.1 - % Normal No Oct 1 ls/100 12.0 informati 2017 6:09 leukocyte on in AM s in source Blood by data Automated count Granulocy 1.8 - 7.8 K/mm3 Normal No Oct 1 herve informati 2017 6:09 [#/volume on in AM ] in source Blood by data Automated count Granulocy 37.0 - % Normal No Oct 1 herve/100 80.0 informati 2017 6:09 leukocyte on in AM s in source Blood by data Automated count Hematocri 37.0 - % Low No Oct 1 t [Volume 47.0 informati 2017 6:09 on in AM Fraction] source of Blood data Hemoglobi 12.2 - g/dL Low No Oct 1 n 16.2 informati 2017 6:09 [Mass/vol on in AM ume] in source Blood data Lymphocyt 0.7 - 4.5 K/mm3 Normal No Oct 1 es informati 2017 6:09 [#/volume on in AM ] in source Unspecifi data ed specimen by Automated count Lymphocyt 10 - 50.0 % Normal No Oct 1 es informati 2016 6:09 [#/volume on in AM ] in source Unspecifi data ed specimen by Automated count Erythrocy 27 - 31.2 pg Normal No Oct 1 te mean informati 2016 6:09 corpuscul on in AM ar source hemoglobi data n [Entitic mass] Erythrocy 31.8 - g/dl Normal No Mar 1 te mean 35.4 informati 2017 6:09 corpuscul on in AM ar source hemoglobi data n concentra tion [Mass/vol ume] by Automated count Erythrocy 82.2 - fl Normal No Mar 1 te mean 97.8 informati 2016 6:09 corpuscul on in AM ar volume source [Entitic data volume] by Automated count Monocytes 0.1 - 1.0 K/mm3 Normal No Oct 1 informati 2016 6:09 [#/volume on in AM ] in source Blood by data Automated count Monocytes 1.7 - 9.3 % High No Oct 1 /100 informati 2017 6:09 leukocyte on in AM s in source Blood by data Automated count Platelet 7.4 - fl Normal No Mar 20 mean 10.4 informati 2017 6:09 volume on in AM [Entitic source volume] data in Blood by Automated count Platelets 142 - 424 K/mm3 No No Oct 1 informati informati 2017 6:09 [#/volume on in on in AM ] in source source Blood data data Erythrocy 4.2 - 5.4 M/mm3 Low No Mar 1 herve informati 2017 6:09 [#/volume on in AM ] in source Amniotic data fluid Erythrocy 11.5 - % Normal No Oct 1 te 17.5 informati 2017 6:09 distribut on in AM ion width source [Entitic data volume] by Automated count Leukocyte 4.8 - K/MM3 Normal No Mar 1 s 10.8 informati 2016 6:09 [#/volume on in AM ] in source Blood data Basic metabolic panel in Blood Observa Value Referen Units Interpr Notes Date tion ce etation Range Urea 7 - 18 mg/dL Normal No Oct 1 nitrogen informati 2017 6:09 [Mass/vol on in AM ume] in source Serum or data Plasma Calcium 8.5 - mg/dL Normal No Mar 1 [Mass/vol 10.1 informati 2017 6:09 ume] in on in AM Serum or source Plasma data Chloride 98 - 107 mmoL/L Normal No Mar 1 [Moles/vo informati 2016 6:09 lume] in on in AM Serum or source Plasma data Carbon 21.0 - mmoL/L Normal No Oct 1 dioxide, 32.0 informati 2017 6:09 total on in AM [Moles/vo source lume] in data Serum or Plasma Creatinin 0.55 - mg/dL High No Oct 1 e 1.02 informati 2017 6:09 [Mass/vol on in AM ume] in source Serum or data Plasma Creatinin 50 - 200 ML/MIN Low No Oct 1 e renal informati 2017 6:09 clearance on in AM source predicted data by Cockcroft -Gault formula Estimated 59- ML/MIN Low REFERENCE Oct 1 RANGE: 2017 6:09 glomerula >60 AM r ML/MIN/1. filtratio 73 SQUARE n rate METERSIf (GF this patient is -A merican, then multiply theresult by 1.210. Glucose 74 - 106 mg/dL High No Oct 1 [Mass/vol informati 2017 6:09 ume] in on in AM Serum or source Plasma data Potassium 3.5 - 5.1 mmoL/L Low No Oct 1 informati 2017 6:09 [Moles/vo on in AM lume] in source Serum or data Plasma Sodium 136 - 145 mmoL/L Normal No Oct 1 [Moles/vo informati 2016 6:09 lume] in on in AM Serum or source Plasma data Glucose [Mass/volume] in Capillary blood by Glucometer Observa Value Referen Units Interpr Notes Date tion ce etation Range Glucose 70 - 110 mg/dl High No Sep 30 [Mass/vol informati 2016 8:20 ume] in on in PM Capillary source blood by data Glucomete r Urinalysis dipstick W Reflex Microscopic panel in Urine Observa Value Referen Units Interpr Notes Date tion ce etation Range Appeara CLOUDY CLEAR No No No Feb 30 nce of informa informa informa 2016 Urine tion in tion in tion in 6:05 PM source source source data data data Bacteri 4+ O No No No Mar 19 a informa informa informa 2016 [Presen tion in tion in tion in 6:05 PM ce] in source source source Urine data data data sedimen t by Light microsc opy Bilirub NEGATIV NEG No No BILIRUB Mar 19 in E informa informa IN 2016 [Presen tion in tion in CONFIRM 6:05 PM ce] in source source ED WITH Urine data data by Test ICTOTES strip T Erythro 2+ NEG No Abnorma No Sep 30 cytes informa l informa 2017 [Presen tion in tion in 6:05 PM ce] in source source Urine data data Color YELLOW YELLOW No No No Sep 30 of informa informa informa 2017 Urine tion in tion in tion in 6:05 PM source source source data data data Glucose NEG No High No Sep 30 [Mass/vol informati informati 2017 6:05 ume] in on in on in PM Urine by source source Test data data strip Hyaline 5-10 NONE #/lpf No No Sep 30 casts informa informa 2017 [Presen tion in tion in 6:05 PM ce] in source source Urine data data sedimen t by Light microsc opy Ketones NEGATIV NEG mg/dL No No Sep 30 E informa informa 2017 [Presen tion in tion in 6:05 PM ce] in source source Urine data data by Automat ed test strip Mucus TRACE NEG No Abnorma No Sep 30 [Presen informa l informa 2016 ce] in tion in tion in 6:05 PM Urine source source sedimen data data t by Light microsc opy Nitrite NEGATIV NEG No No No Sep 30 E informa informa informa 2017 [Presen tion in tion in tion in 6:05 PM ce] in source source source Urine data data data by Test strip pH of 5.0 - 8.5 No Normal No Sep 30 Urine informati informati 2017 6:05 on in on in PM source source data data Protein NEG mg/dL High No Sep 30 [Mass/vol informati 2017 6:05 ume] in on in PM Urine by source Automated data test strip Erythro 5-10 0 rbc/hpf No No Sep 30 cytes informa informa 2017 [Presen tion in tion in 6:05 PM ce] in source source Urine data data sedimen t by Light microsc opy Specific 1.005 - No Normal No Sep 30 gravity 1.030 informati informati 2017 6:05 of Urine on in on in PM source source data data Epithel 5-10 0 - 5 #/hpf No No Sep 30 ial informa informa 2017 cells.s tion in tion in 6:05 PM quamous source source data data [Presen ce] in Urine sedimen t by Microsc opy high power field Urobili 1.0 NEG E.U./dL No No Sep 30 nogen informa informa 2017 [Presen tion in tion in 6:05 PM ce] in source source Urine data data by Test strip Leukocy [20 O wbc/hpf No No Sep 30 herve wbc/hpf informa informa 2017 [#/volu ; 50 tion in tion in 6:05 PM me] in wbc/hpf source source Urine ] data data Urinalysis dipstick W Reflex Microscopic panel in Urine Observa Value Referen Units Interpr Notes Date tion ce etation Range Appeara CLOUDY CLEAR No No No Sep 30 nce of informa informa informa 2017 Urine tion in tion in tion in 6:05 PM source source source data data data Bilirub NEGATIV NEG No No BILIRUB Sep 30 in E informa informa IN 2016 [Presen tion in tion in CONFIRM 6:05 PM ce] in source source ED WITH Urine data data by Test ICTOTES strip T Erythro 2+ NEG No Abnorma No Feb 30 cytes informa l informa 2016 [Presen tion in tion in 6:05 PM ce] in source source Urine data data Color YELLOW YELLOW No No No Sep 30 of informa informa informa 2017 Urine tion in tion in tion in 6:05 PM source source source data data data Glucose NEG No High No Sep 30 [Mass/vol informati informati 2017 6:05 ume] in on in on in PM Urine by source source Test data data strip Ketones NEGATIV NEG mg/dL No No Sep 30 E informa informa 2016 [Presen tion in tion in 6:05 PM ce] in source source Urine data data by Automat ed test strip Mucus TRACE NEG No Abnorma No Sep 30 [Presen informa l informa 2016 ce] in tion in tion in 6:05 PM Urine source source sedimen data data t by Light microsc opy Nitrite NEGATIV NEG No No No Sep 30 E informa informa informa 2016 [Presen tion in tion in tion in 6:05 PM ce] in source source source Urine data data data by Test strip pH of 5.0 - 8.5 No Normal No Mar 19 Urine informati informati 2016 6:05 on in on in PM source source data data Protein NEG mg/dL High No Mar 19 [Mass/vol informati 2016 6:05 ume] in on in PM Urine by source Automated data test strip Specific 1.005 - No Normal No Mar 19 gravity 1.030 informati informati 2016 6:05 of Urine on in on in PM source source data data Urobili 1.0 NEG E.U./dL No No Mar 19 nogen informa informa 2016 [Presen tion in tion in 6:05 PM ce] in source source Urine data data by Test strip Glucose [Mass/volume] in Capillary blood by Glucometer Observa Value Referen Units Interpr Notes Date ti ce etation Range Glucose 70 - 110 mg/dl High No Mar 19 [Mass/vol informati 2016 5:03 ume] in on in PM Capillary source blood by data Glucomete r Troponin I.cardiac [Mass/volume] in Serum or Plasma Observa Value Referen Units Interpr Notes ti ce etation Range Troponin 0.00 - ng/mL High Mar 19 I.cardiac 0.06 2016 4:10 CRITICAL PM [Mass/vol RESULTS ume] in Serum or RESU Plasma LTS CALLED TO: EDEN 03/19/17 1703 Loy,Rich otoniel> 0.5 IS CONSISTEN T WITH MYOCARDIA L ISCHEMIA OR INFARCTIO N Troponin I.cardiac [Mass/volume] in Serum or Plasma Observa Value Referen Units Interpr Notes ce etation Range Troponin 0.00 - ng/mL High Mar 19 I.cardiac 0.06 2016 1:30 CRITICAL PM [Mass/vol RESULTS ume] in Serum or RESU Plasma LTS CALLED TO: ELSA 03/19/17 1406 Loy,Rich otoniel> 0.5 IS CONSISTEN T WITH MYOCARDIA L ISCHEMIA OR INFARCTIO N Natriutietic peptide B [Mass/volume] in Serum or Plasma Observa Value Referen Units Interpr Notes Date ti ce etation Range Natriutie 0 - 100 pg/mL High No Sep 30 tic informati 2017 peptide B on in 10:15 AM source [Mass/vol data ume] in Serum or Plasma Cardiac enzymes Observa Value Referen Units Interpr Notes Date ti ce etation Range Creatine 0 - 4.0 U/L Normal No Sep 30 kinase.MB informati 2016 /Creatine on in 10:15 AM source kinase.to data jensen [Ratio] in Serum or Plasma Creatine 0.0 - 3.6 ng/mL High No Feb 30 kinase.MB informati 2017 on in 10:15 AM [Mass/vol source ume] in data Serum or Plasma Creatine 26 - 192 U/L High No Feb 30 kinase informati 2017 [Enzymati on in 10:15 AM c source activity/ data volume] in Serum or Plasma Troponin 0.00 - ng/mL High Feb 30 I.cardiac 0.06 2017 CRITICAL 10:15 AM [Mass/vol RESULTS ume] in Serum or RESU Plasma LTS CALLED TO: TYRA 03/19/17 1106 Loy,Rich otoniel> 0.5 IS CONSISTEN T WITH MYOCARDIA L ISCHEMIA OR INFARCTIO N Amylase [Enzymatic activity/volume] in Serum or Plasma Observa Value Referen Units Interpr Notes Date ti etation Range Amylase 25 - 115 U/L Low No Feb 30 [Enzymati informati 2016 c on in 10:15 AM activity/ source volume] data in Serum or Plasma Lipase [Enzymatic activity/volume] in Serum or Plasma Observa Value Referen Units Interpr Notes Date ti etation Range Lipase 73 - 393 U/L Normal No Feb 30 [Enzymati informati 2016 c on in 10:15 AM activity/ source volume] data in Serum or Plasma Comprehensive metabolic 2000 panel in Serum or Plasma Observa Value Referen Units Interpr Notes Date ti ce etation Range Albumin/G 1.1 - 1.8 No Low No Sep 30 lobulin informati informati 2017 [Mass on in on in 10:15 AM ratio] in source source Serum or data data Plasma Albumin 3.4 - 5.0 gm/dL Low No Feb 30 [Mass/vol informati 2017 ume] in on in 10:15 AM Serum or source Plasma data Alkaline 46 - 116 U/L Normal No Sep 30 phosphata informati 2017 se on in 10:15 AM [Enzymati source c data activity/ volume] in Serum or Plasma Bilirubin 0.2 - 1.0 mg/dL High No Sep 30 .total informati 2017 [Mass/vol on in 10:15 AM ume] in source Serum or data Plasma Urea 7 - 18 mg/dL Normal No Sep 30 nitrogen informati 2017 [Mass/vol on in 10:15 AM ume] in source Serum or data Plasma Calcium 8.5 - mg/dL Normal No Sep 30 [Mass/vol 10.1 informati 2017 ume] in on in 10:15 AM Serum or source Plasma data Chloride 98 - 107 mmoL/L Normal No Sep 30 [Moles/vo informati 2017 lume] in on in 10:15 AM Serum or source Plasma data Carbon 21.0 - mmoL/L Normal No Sep 30 dioxide, 32.0 informati 2017 total on in 10:15 AM [Moles/vo source lume] in data Serum or Plasma Creatinin 0.55 - mg/dL High No Sep 30 e 1.02 informati 2017 [Mass/vol on in 10:15 AM ume] in source Serum or data Plasma Creatinin 50 - 200 ML/MIN Low No Sep 30 e renal informati 2017 clearance on in 10:15 AM source predicted data by Cockcroft -Gault formula Estimated 59- ML/MIN Low REFERENCE Sep 30 RANGE: 2017 glomerula >60 10:15 AM r ML/MIN/1. filtratio 73 SQUARE n rate METERSIf (GF this patient is -A merican, then multiply theresult by 1.210. Globulin 1.3 - 3.2 gm/dL High No Sep 30 [Mass/vol informati 2017 ume] in on in 10:15 AM Serum source data Glucose 74 - 106 mg/dL High No Sep 30 [Mass/vol informati 2017 ume] in on in 10:15 AM Serum or source Plasma data Potassium 3.5 - 5.1 mmoL/L Normal No Sep 30 informati 2017 [Moles/vo on in 10:15 AM lume] in source Serum or data Plasma Sodium 136 - 145 mmoL/L Normal No Sep 30 [Moles/vo informati 2017 lume] in on in 10:15 AM Serum or source Plasma data Aspartate 15 - 37 U/L High No Sep 30 inform2016 aminotran on in 10:15 AM sferase source [Enzymati data c activity/ volume] in Serum or Plasma Alanine 12 - 78 U/L Normal No Sep 30 aminotran inform2016 sferase on in 10:15 AM [Enzymati source c data activity/ volume] in Serum or Plasma Protein 6.4 - 8.2 gm/dL Normal No Sep 30 [Mass/vol inform2016 ume] in on in 10:15 AM Serum or source Plasma data CBC W Auto Differential panel in Blood Observa Value Referen Units Interpr Notes Date tion ce etation Range Granulocy 1.8 - 7.8 K/mm3 High No Sep 30 herve inform2016 [#/volume on in 10:15 AM ] in source Blood by data Automated count Granulocy 37.0 - % High No Sep 30 herve/100 80.0 inform2016 leukocyte on in 10:15 AM s in source Blood by data Automated count Hematocri 37.0 - % Low No Sep 30 t [Volume 47.0 informati 2016 on in 10:15 AM Fraction] source of Blood data Hemoglobi 12.2 - g/dL Low No Sep 30 n 16.2 informati 2016 [Mass/vol on in 10:15 AM ume] in source Blood data Lymphocyt 0.7 - 4.5 K/mm3 Normal No Sep 30 es inform2016 [#/volume on in 10:15 AM ] in source Unspecifi data ed specimen by Automated count Lymphocyt 10 - 50.0 % Normal No Sep 30 es inform2016 [#/volume on in 10:15 AM ] in source Unspecifi data ed specimen by Automated count Erythrocy 27 - 31.2 pg Normal No Sep 30 te mean inform 2017 corpuscul on in 10:15 AM ar source hemoglobi data n [Entitic mass] Erythrocy 31.8 - g/dl Normal No Sep 30 te mean 35.4 inform 2017 corpuscul on in 10:15 AM ar source hemoglobi data n concentra tion [Mass/vol ume] by Automated count Erythrocy 82.2 - fL Normal No Sep 30 te mean 97.8 informati 2016 corpuscul on in 10:15 AM ar volume source [Entitic data volume] by Automated count Monocytes 0.1 - 1.0 K/mm3 Normal No Sep 30 informati 2016 [#/volume on in 10:15 AM ] in source Blood by data Automated count Monocytes 1.7 - 9.3 % Normal No Sep 30 /100 informati 2017 leukocyte on in 10:15 AM s in source Blood by data Automated count Platelets 142 - 424 K/mm3 Normal No Sep 30 informati 2016 [#/volume on in 10:15 AM ] in source Blood data Erythrocy 4.2 - 5.4 M/mm3 Low No Sep 30 herve informati 2016 [#/volume on in 10:15 AM ] in source Amniotic data fluid Erythrocy 11.5 - % Normal No Sep 30 te 17.5 informati 2017 distribut on in 10:15 AM ion width source [Entitic data volume] by Automated count Leukocyte 4.8 - K/mm3 High No Sep 30 s 10.8 informati 2016 [#/volume on in 10:15 AM ] in source Blood data Hemoglobin A1c in Blood Observa Value Referen Units Interpr Notes Date tion ce etation Range Hemoglo 6.9 0.0 - % Normal < 6% Mar 16 bin A1c 7.0 NON-OSVALDO 2017 in BETIC 10:36 Blood LEVEL< AM 7% CONTROL LED DIABETI C LEVEL> 8% POORLY CONTROL LED DIABETI C LEVEL Calcium.ionized [Mass/volume] in Serum or Plasma by Ion-selective membrane electrode (ISE) Observa Value Referen Units Interpr Notes Date tion ce etation Range Calcium.i 4.5 - 5.6 mg/dL No Performed Feb 15 onized informati at: CB 2017 7:29 [Mass/vol on in - [facility] AM ume] in source Serum or data [place] [id number] Plasma by [address] [place] [address] membrane [id number] electrode Lab (ISE) Director: Eliseo Vicente PhD, Phone: [phone] 25-Hydroxyvitamin D [Mass/volume] in Serum or Plasma Observa Value Referen Units Interpr Notes Date tion ce etation Range 25-Hydrox 30.0 - ng/mL Low Vitamin D Feb 15 yvitamin 100.0 2017 7:29 D deficienc AM [Mass/vol y has ume] in been Serum or defined Plasma by the [place] ofMedicin e and an Endocrine Society practice guideline as alevel of serum 25-OH vitamin D less than 20 ng/mL (1,2).The Endocrine Society went on to further define vitamin Dinsuffic iency as a level between 21 and 29 ng/mL (2).1. IOM (Institut e of Medicine) . 2010. Dietary reference intakes for calcium and D. [place]: TheNation al [employer] Press.2. Sanaz MF, Donnell NC, Carlos Rodríguez CROWELL, et al.Evalua tion, treatment , and preventio n of vitamin Ddeficien cy: an Endocrine Society clinical practiceg uideline. JCEM. 2010; 96(7):191 1-30.Perf ormed at: CB - [facility] [id number] [place], [place] [id number] Grinder Needle Tip: Eliseo Vicente PhD, Phone: [phone] Parathyrin.intact [Mass/volume] in Serum or Plasma Observa Value Referen Units Interpr Notes Date tion ce etation Range Parathyri 15 - 65 pg/mL No Performed Feb 15 n.intact informati at: CB 2016 7:29 [Mass/vol on in - [facility] AM ume] in source Serum or data [id number] Plasma 0 [place], [place] [id number] Grinder Needle Tip: Eliseo Vicente PhD, Phone: [phone] Renal function 2000 panel in Serum or Plasma Observa Value Referen Units Interpr Notes Date tion ce etation Range Albumin 3.4 - 5.0 gm/dL Normal No Feb 15 [Mass/vol informati 2016 7:29 ume] in on in AM Serum or source Plasma data Urea 7 - 18 mg/dL High No Feb 15 nitrogen informati 2016 7:29 [Mass/vol on in AM ume] in source Serum or data Plasma Calcium 8.5 - mg/dL Normal No Feb 15 [Mass/vol 10.1 informati 2016 7:29 ume] in on in AM Serum or source Plasma data Chloride 98 - 107 mmoL/L Normal No Feb 15 [Moles/vo informati 2016 7:29 lume] in on in AM Serum or source Plasma data Carbon 21.0 - mmoL/L Normal No Feb 15 dioxide, 32.0 informati 2016 7:29 total on in AM [Moles/vo source lume] in data Serum or Plasma Creatinin 0.55 - mg/dL High No Feb 15 e 1.02 informati 2016 7:29 [Mass/vol on in AM ume] in source Serum or data Plasma Estimated 59- ML/MIN Low REFERENCE Feb 15 RANGE: 2016 7:29 glomerula >60 AM r ML/MIN/1. filtratio 73 SQUARE n rate METERSIf (GF this patient is -A merican, then multiply theresult by 1.210. Glucose 74 - 106 mg/dL Normal No Feb 15 [Mass/vol informati 2016 7:29 ume] in on in AM Serum or source Plasma data Potassium 3.5 - 5.1 mmoL/L Normal No Feb 15 informati 2016 7:29 [Moles/vo on in AM lume] in source Serum or data Plasma Sodium 136 - 145 mmoL/L Normal No Feb 15 [Moles/vo informati 2016 7:29 lume] in on in AM Serum or source Plasma data Phosphate 2.4 - 4.9 mg/dL Normal No Feb 15 inform2016 7:29 [Moles/vo on in AM lume] in source Unspecifi data ed specimen CBC W Auto Differential panel in Blood Observa Value Referen Units Interpr Notes Date tion ce etation Range Basophils 0 - 0.2 K/MM3 Normal No Feb 15 informati 2016 7:29 [#/volume on in AM ] in source Blood by data Automated count Basophils 0.1 - 2.0 % Normal No Feb 15 informati 2016 7:29 leukocyte on in AM s in source Blood by data Automated count Eosinophi 0.0 - 0.4 K/mm3 Normal No Feb 15 ls informati 2016 7:29 [#/volume on in AM ] in source Blood by data Automated count Eosinophi 0.1 - % Normal No Feb 15 ls/100 12.0 informati 2016 7:29 leukocyte on in AM s in source Blood by data Automated count Granulocy 1.8 - 7.8 K/mm3 Normal No Feb 15 herve informati 2016 7:29 [#/volume on in AM ] in source Blood by data Automated count Granulocy 37.0 - % Normal No Feb 15 herve/100 80.0 informati 2016 7:29 leukocyte on in AM s in source Blood by data Automated count Hematocri 37.0 - % Low No Feb 15 t [Volume 47.0 informati 2017 7:29 on in AM Fraction] source of Blood data Hemoglobi 12.2 - g/dL Low No Feb 15 n 16.2 informati 2017 7:29 [Mass/vol on in AM ume] in source Blood data Lymphocyt 0.7 - 4.5 K/mm3 Normal No Feb 15 es informati 2016 7:29 [#/volume on in AM ] in source Unspecifi data ed specimen by Automated count Lymphocyt 10 - 50.0 % Normal No Feb 15 es informati 2016 7:29 [#/volume on in AM ] in source Unspecifi data ed specimen by Automated count Erythrocy 27 - 31.2 pg High No Feb 15 te mean informati 2017 7:29 corpuscul on in AM ar source hemoglobi data n [Entitic mass] Erythrocy 31.8 - g/dl Normal No Feb 15 te mean 35.4 informati 2017 7:29 corpuscul on in AM ar source hemoglobi data n concentra tion [Mass/vol ume] by Automated count Erythrocy 82.2 - fl Normal No Feb 15 te mean 97.8 informati 2017 7:29 corpuscul on in AM ar volume source [Entitic data volume] by Automated count Monocytes 0.1 - 1.0 K/mm3 Normal No Feb 15 informati 2017 7:29 [#/volume on in AM ] in source Blood by data Automated count Monocytes 1.7 - 9.3 % High No Feb 15 /100 informati 2017 7:29 leukocyte on in AM s in source Blood by data Automated count Platelet 7.4 - fl Normal No Feb 15 mean 10.4 informati 2017 7:29 volume on in AM [Entitic source volume] data in Blood by Automated count Platelets 142 - 424 K/mm3 Normal No Feb 15 informati 2017 7:29 [#/volume on in AM ] in source Blood data Erythrocy 4.2 - 5.4 M/mm3 Low No Feb 15 herve informati 2017 7:29 [#/volume on in AM ] in source Amniotic data fluid Erythrocy 11.5 - % Normal No Feb 15 te 17.5 informati 2017 7:29 distribut on in AM ion width source [Entitic data volume] by Automated count Leukocyte 4.8 - K/MM3 Normal No Feb 15 s 10.8 informati 2016 7:29 [#/volume on in AM ] in source Blood data Basic metabolic panel in Blood Observa Value Referen Units Interpr Notes Date tion ce etation Range Urea 7 - 18 mg/dL High No Dec 29 nitrogen informati 2016 [Mass/vol on in 11:13 AM ume] in source Serum or data Plasma Calcium 8.5 - mg/dL Normal No Dec 29 [Mass/vol 10.1 informati 2016 ume] in on in 11:13 AM Serum or source Plasma data Chloride 98 - 107 mmoL/L Normal No Dec 29 [Moles/vo informati 2016 lume] in on in 11:13 AM Serum or source Plasma data Carbon 21.0 - mmoL/L Normal No Dec 29 dioxide, 32.0 informati 2016 total on in 11:13 AM [Moles/vo source lume] in data Serum or Plasma Creatinin 0.55 - mg/dL High No Dec 29 e 1.02 informati 2016 [Mass/vol on in 11:13 AM ume] in source Serum or data Plasma Estimated 59- ML/MIN Low alert REFERENCE Dec 29 RANGE: 2017 glomerula >60 11:13 AM r ML/MIN/1. filtratio 73 SQUARE n rate METERSIf (GF this patient is -A merican, then multiply theresult by 1.210. Glucose 74 - 106 mg/dL Normal No Dec 29 [Mass/vol informati 2016 ume] in on in 11:13 AM Serum or source Plasma data Potassium 3.5 - 5.1 mmoL/L Normal No Dec 29 inform2016 [Moles/vo on in 11:13 AM lume] in source Serum or data Plasma Sodium 136 - 145 mmoL/L Normal No Dec 29 [Moles/vo informati 2016 lume] in on in 11:13 AM Serum or source Plasma data Iron and TIBC Observa Value Referen Units Interpr Notes Date tion ce etation Range Iron 250 - 450 ug/dL No No November 12 binding informati informati 2017 capacity on in on in 10:42 AM [Mass/vol source source ume] in data data Serum or Plasma Iron 118 - 369 ug/dL No No November 12 binding informati informati 2017 capacity. on in on in 10:42 AM unsaturat source source ed data data [Mass/vol ume] in Serum or Plasma Iron 27 - 139 ug/dL No No November 12 [Mass/vol informati informati 2017 ume] in on in on in 10:42 AM Serum or source source Plasma data data Iron 15 - 55 % No Performed November 12 saturatio informati at: CB 2017 n [Mass] on in - [facility] 10:42 AM in Serum source or Plasma data [id number] [place], [place] [id number] Grinder Needle Tip: Eliseo Vicente PhD, Phone: [phone] Ferritin [Mass/volume] in Serum or Plasma Observa Value Referen Units Interpr Notes Date tion ce etation Range Ferritin 8 - 388 ng/mL High No November 12 [Mass/vol informati 2017 ume] in on in 10:42 AM Serum or source Plasma data Renal function 2000 panel in Serum or Plasma Observa Value Referen Units Interpr Notes Date tion ce etation Range Albumin 3.4 - 5.0 gm/dL Normal No November 12 [Mass/vol informati 2016 ume] in on in 10:42 AM Serum or source Plasma data Urea 7 - 18 mg/dL High No November 12 nitrogen informati 2016 [Mass/vol on in 10:42 AM ume] in source Serum or data Plasma Calcium 8.5 - mg/dL Normal No November 12 [Mass/vol 10.1 informati 2016 ume] in on in 10:42 AM Serum or source Plasma data Chloride 98 - 107 mmoL/L Normal No November 12 [Moles/vo informati 2016 lume] in on in 10:42 AM Serum or source Plasma data Carbon 21.0 - mmoL/L Normal No November 12 dioxide, 32.0 informati 2016 total on in 10:42 AM [Moles/vo source lume] in data Serum or Plasma Creatinin 0.55 - mg/dL High No November 12 e 1.02 informati 2016 [Mass/vol on in 10:42 AM ume] in source Serum or data Plasma Estimated 59- ML/MIN Low alert REFERENCE November 12 RANGE: 2017 glomerula >60 10:42 AM r ML/MIN/1. filtratio 73 SQUARE n rate METERSIf (GF this patient is -A merican, then multiply theresult by 1.210. Glucose 74 - 106 mg/dL Normal No November 12 [Mass/vol informati 2016 ume] in on in 10:42 AM Serum or source Plasma data Potassium 3.5 - 5.1 mmoL/L Normal No November 122016 [Moles/vo on in 10:42 AM lume] in source Serum or data Plasma Sodium 136 - 145 mmoL/L Normal No November 12 [Moles/vo 2016 lume] in on in 10:42 AM Serum or source Plasma data Phosphate 2.4 - 4.9 mg/dL High No November 122016 [Moles/vo on in 10:42 AM lume] in source Unspecifi data ed specimen CBC W Auto Differential panel in Blood Observa Value Referen Units Interpr Notes Date tion ce etation Range Basophils 0 - 0.2 K/MM3 Normal No November 122016 [#/volume on in 10:42 AM ] in source Blood by data Automated count Basophils 0.1 - 2.0 % Normal No November 122016 leukocyte on in 10:42 AM s in source Blood by data Automated count Eosinophi 0.0 - 0.4 K/mm3 Normal No November 12 ls 2016 [#/volume on in 10:42 AM ] in source Blood by data Automated count Eosinophi 0.1 - % Normal No November 12 ls/100 12.0 2016 leukocyte on in 10:42 AM s in source Blood by data Automated count Granulocy 1.8 - 7.8 K/mm3 Normal No November 12 herve 2016 [#/volume on in 10:42 AM ] in source Blood by data Automated count Granulocy 37.0 - % Normal No November 12 herve/100 80.0 2016 leukocyte on in 10:42 AM s in source Blood by data Automated count Hematocri 37.0 - % Low No November 12 t [Volume 47.0 2016 on in 10:42 AM Fraction] source of Blood data Hemoglobi 12.2 - g/dL Low No November 12 n 16.2 2016 [Mass/vol on in 10:42 AM ume] in source Blood data Lymphocyt 0.7 - 4.5 K/mm3 Normal No November 12 es 2016 [#/volume on in 10:42 AM ] in source Unspecifi data ed specimen by Automated count Lymphocyt 10 - 50.0 % Normal No November 12 es 2016 [#/volume on in 10:42 AM ] in source Unspecifi data ed specimen by Automated count Erythrocy 27 - 31.2 pg High No November 12 te mean inform2016 corpuscul on in 10:42 AM ar source hemoglobi data n [Entitic mass] Erythrocy 31.8 - g/dl Normal No November 12 te mean 35.4 inform2016 corpuscul on in 10:42 AM ar source hemoglobi data n concentra tion [Mass/vol ume] by Automated count Erythrocy 82.2 - fl High No November 12 te mean 97.8 informati 2016 corpuscul on in 10:42 AM ar volume source [Entitic data volume] by Automated count Monocytes 0.1 - 1.0 K/mm3 Normal No November 12 informati 2016 [#/volume on in 10:42 AM ] in source Blood by data Automated count Monocytes 1.7 - 9.3 % Normal No November 12 /100 inform2016 leukocyte on in 10:42 AM s in source Blood by data Automated count Platelet 7.4 - fl Low No November 12 mean 10.4 informati 2016 volume on in 10:42 AM [Entitic source volume] data in Blood by Automated count Platelets 142 - 424 K/mm3 Normal No November 12 inform2016 [#/volume on in 10:42 AM ] in source Blood data Erythrocy 4.2 - 5.4 M/mm3 Low No November 12 herve informati 2016 [#/volume on in 10:42 AM ] in source Amniotic data fluid Erythrocy 11.5 - % Normal No November 12 te 17.5 informati 2016 distribut on in 10:42 AM ion width source [Entitic data volume] by Automated count Leukocyte 4.8 - K/MM3 Normal No November 12 s 10.8 informati 2016 [#/volume on in 10:42 AM ] in source Blood data
--- OUTSIDE RECORDS SUMMARY | 2017-03-30 17:47 | External Medical Summary Rpt ---
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 blood data VENOUS O2 SAT BUS OPERATOR Observa Value Referen Units Interpr Notes Date [...] AM ume] in source Serum or data [place] [address] Plasma by [address] [place] [address] membrane [id number] electrode Lab (ISE) Director: Eliseo Vicente PhD, Phone: [phone] 25-Hydroxyvitamin D [Mass/volume] in Serum or Plasma Observa Value Referen Units Interpr Notes Date tion ce etation Range 25-Hydrox 30.0 - ng/mL Low Vitamin D Feb 15 yvitamin 100.0 2017 7:29 D deficienc AM [Mass/vol y has ume] in been Serum or defined Plasma by the [place] ofMedicin e and an Endocrine Society practice guideline as alevel of serum 25-OH vitamin D less than 20 ng/mL (1,2).The Endocrine Society went on to further define vitamin Dinsuffic iency as a level between 21 and 29 ng/mL (2).1. IOM (Institut e of Medicine) . 2010. Dietary reference intakes for calcium and D. [place]: [employer] Press.2. Sanaz MF, Donnell NC, Carlos Rodríguez CROWELL, et al.Evalua tion, treatment , and preventio n of vitamin Ddeficien cy: an Endocrine Society clinical practiceg uideline. JCEM. 2010; 96(7):191 1-30.Perf ormed at: CB - [facility] [id number] [place], [place] [id number] Coater Operator: Eliseo Vicente PhD, Phone: [phone] Parathyrin.intact [Mass/volume] in Serum or Plasma Observa Value Referen Units Interpr Notes Date tion ce etation Range Parathyri 15 - 65 pg/mL No Performed Feb 15 n.intact informati at: CB 2016 7:29 [Mass/vol on in - [facility] AM ume] in source Serum or data [id number] Plasma 0 [place], [place] [id number] Coater Operator: Eliseo Vicente PhD, Phone: [phone] Renal function 2000 panel in Serum [...] AM in Serum source or Plasma data [id number] [place], [place] [id number] Coater Operator: Eliseo Vicente PhD, Phone: [phone] Ferritin [Mass/volume] in Serum or Plasma [...]
--- OUTSIDE RECORDS SUMMARY | 2017-03-30 18:30 | External Medical Summary Rpt ---
Author Author , YONAS BRANHAM Address Unknown Phone [email or web address] Care Team Providers Care Airline Mechanic Name Role Phone [facility], Unavailable Unavailable [facility] Un[facility] Unavailable [facility], [facility] Un[facility] Unavailable [facility], [facility] JESUS OROSCO Unavailable Unavailable [facility] Unavailable Unavailable [facility] Deavn Lee MD, Unavailable Unavailable [facility] Unavailable Unavailable SERVICES, [facility] KERA FINLEY, Unavailable Unavailable KER[facility] FINLEY, Unavailable Unavailable [facility] LUU, GASTON [facility] Unavailable Unavailable Purpose Continuity of Care Document - 08-23-2012 through 2016 Problems Code Diagnosis DOS Provider Status 54738 DIAB W/O 12-09-2012 [facility] COMP TYPE EMERGENCY II/UNS NOT SERVICES STATED UNCNTRL 2511 OTHER 12-09-2012 [facility] SPECIFIED AMBULANCE HYPOGLYCEMI SERVICE A 2512 HYPOGLYCEMI 12-09-2012 [facility] A, EMERGENCY UNSPECIFIED SERVICES 43036 OTHER 12-09-2012 [facility] ALTERATION [place] [address] AFTER-CATAR 10-10-2012 [place] [facility]ING [facility] VISION 68497 DIAB 09-12-2012 [facility] W/[facility]S [facility] TYPE II/UNS NOT UNCNTRL 3688 OTHER 09-12-2012 [facility] SPECIFIED EYE VISUAL INSTITUTE DISTURBANCE S V431 LENS 09-12-2012 [place] REPLACED BY EYE OTHER INSTITUTE MEANS 82715 MODERATE 08-28-2012 [facility] NONPROLIFER ANG ATIVE DIABETIC RETINOPATHY 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 250.01 250.01 DIAB 08-23-2012 [facility], TYPE Hospital I [JUVENILE TYPE], NOT UNCNTRLD 401.9 401.9 08-23-2012 [facility] 521.00 521.00 08-23-2012 [facility] CARIES 528.2 528.2 ORAL 08-23-2012 [facility] 5282 ORAL 08-23-2012 [facility] EMERGENCY SERVICES 724.3 724.3 08-23-2012 [facility] 7243 SCIATICA 08-23-2012 [facility] Allergies, Adverse Reactions, Alerts Type [...] K/MM3 ed Bld 12:02 Auto Glucose BldC Glucomtr-[facility] [address] (12-09-2012 10:23) Glucose 12-09-2 85 70-110 complet BldC 013 mg/dl ed Glucomt 10:23 r-[facility] [address] URINALYSIS/COMPLETE (08-23-2012 18:04) URINE YELLOW YELLOW complet [...] DOS Code Location Performer Comment [facility] PER SERVICE SERVICE STATUTE [facility] A0427 [facility] 3 AMBULANCE AMBULANCE ALS SERVICE SERVICE EMERGENCY TRANSPORT LEVEL 1 [facility] 99657 [facility] 3 EYE [facility] XM&EVAL INSTITUTE COMPRE NEW PT 1/> VST COMPUTERI 47112 K[facility] CASTANEDA 3 ANG ANG OPHTHALMI C IMAGING RETINA Encounters Encounter Start End Date Code Location Performer Type Date Emergency HARPER Gamble MD (ER) 3 09:58 3 13:44 [facility] EMERGENCY 36245 [facility] 3 3 EMERGENCY DEPARTMEN SERVICES T VISIT HIGH/URGE NT SEVERITY OFFICE 90525 KERA DAVIS 3 3 ANG TUSHAR T NEW 45 MINUTES Emergency HARPER Lee MD (ER) 3 17:47 3 18:41 [facility] EMERGENCY 90386 [facility] LEE 3 3 EMERGENCY AWA DEPARTMEN SERVICES T VISIT HIGH/URGE NT SEVERITY
--- OUTSIDE RECORDS SUMMARY | 2017-03-30 18:30 | External Medical Summary Rpt ---
Author Author , YONAS BRANHAM Address Unknown Phone [email or web address] Immunization Name Date Rout CVX Reac Dose [...]
--- OUTSIDE RECORDS SUMMARY | 2017-03-30 18:30 | External Medical Summary Rpt ---
Author Author , YONAS BRANHAM Address Unknown Phone [email or web address] Care Team Providers Care Candy Maker Helper Name Role Phone [facility], Unavailable Unavailable [facility] Unavailable Unavailable SERVICE, [facility] Unavailable Unavailable SERVICE, [facility] JESUS AWA, JESUS Unavailable Unavailable [facility] Unavailable [facility], [facility] Unavailable Unavailable SERVICES, [facility] KERA FINLEY, Unavailable Unavailable KERA FINLEY, Unavailable Unavailable KERA LUU, GASTON LUU Unavailable Unavailable Purpose Continuity of Care Document - 08-23-2012 through 2016 Problems Code Diagnosis DOS Provider Status 22974 DIAB W/O 12-09-2012 [facility] COMP TYPE EMERGENCY II/UNS NOT SERVICES STATED UNCNTRL 2511 OTHER 12-09-2012 [facility] SPECIFIED AMBULANCE HYPOGLYCEMI SERVICE A 2512 HYPOGLYCEMI 12-09-2012 [facility] A, EMERGENCY UNSPECIFIED SERVICES 17501 OTHER 12-09-2012 [facility] [place] [address] AFTER-CATAR 10-10-2012 [place] [facility] VISION 72339 DIAB 09-12-2012 [place] W/OPHTH E[facility] MANIFESTS INSTITUTE TYPE II/UNS NOT UNCNTRL 3688 OTHER 09-12-2012 [place] SPECIFIED EYE VISUAL INSTITUTE DISTURBANCE S V431 LENS 09-12-2012 [place] REPLACED BY EYE OTHER INSTITUTE MEANS 79863 MODERATE 08-28-2012 [facility] NONPROLIFER ANG ATIVE DIABETIC RETINOPATHY 32240 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 5282 ORAL 08-23-2012 [facility] 7243 SCIATICA 08-23-2012 [facility] Procedures Procedure DOS Code Location Performer Comment AMB A0427 [facility] SERVICE 3 AMBULANCE AMBULANCE ALS SERVICE SERVICE EMERGENCY TRANSPORT LEVEL 1 GROUND A0425 [facility] MILEAGE 3 AMBULANCE AMBULANCE PER SERVICE SERVICE STATUTE MILE POST-PURA 58200 [facility] 3 [facility] SUR[facility]PHTH [address] [facility] 3 EYE CADEN XM&EVAL INSTITUTE COMPRE NEW PT 1/> VST COMPUTERI 02396 [facility] C[facility] ZED 3 ANG ANG OPHTHALMI C IMAGING RETINA Encounters Encounter Start End Date Code Location Performer Type Date EMERGENCY 51707 [facility] 3 3 EMERGENCY DEPARTMEN SERVICES T VISIT HIGH/URGE NT SEVERITY OFFICE 97382 KERA DAVIS 3 3 ANG TUSHAR T SHELLEY 45 MINUTES EMERGENCY 70741 [facility] LEE 3 3 EMERGENCY AWA DEPARTMEN SERVICES T VISIT HIGH/URGE NT SEVERITY
--- OUTSIDE RECORDS SUMMARY | 2017-03-30 18:30 | External Medical Summary Rpt ---
Author Author , YNOAS BRANHAM Address Unknown Phone [email or web address] Care Team Providers Care Hematology Nurse Educator Name Role Phone [facility] CADEN, Unavailable Unavailable L[facility] CADEN [facility] Unavailable Unavailable SERVICE, [facility] Unavailable Unavailable SERVICE, [facility] JESUS AWA, JESUS Unavailable Unavailable [facility] Un[facility] Unavailable [facility], [facility] Unavailable Unavailable SERVICES, [facility] KERA FINLEY, Unavailable Unavailable KERA FINLEY, Unavailable Unavailable [facility] LUU, GASTON [facility] Unavailable Unavailable Purpose Continuity of Care Document - 08-23-2012 through 2016 Problems Code Diagnosis DOS Provider Status 22165 DIAB W/O 12-09-2012 [facility] TYPE EMERGENCY II/UNS NOT SERVICES STATED UNCNTRL 2511 OTHER 12-09-2012 [facility] SPECIFIED AMBULANCE HYPOGLYCEMI SERVICE A 2512 HYPOGLYCEMI 12-09-2012 [facility] A, EMERGENCY UNSPECIFIED SERVICES 77035 OTHER 12-09-2012 [facility] [place] [id number] AFTER-CATAR 10-10-2012 [facility] VISION 63159 DIAB 09-12-2012 [facility] W/[facility]IF[facility]S [facility] TYPE II/UNS NOT UNCNTRL 3688 OTHER 09-12-2012 [facility] SPECIFIED EYE VISUAL INSTITUTE DISTURBANCE S V431 LENS 09-12-2012 [facility] REPLACED BY EYE OTHER INSTITUTE MEANS 36509 MODERATE 08-28-2012 [facility] NONPROLIFER ANG ATIVE DIABETIC RETINOPATHY 16169 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 3 [facility] 54398 [facility] 3 EYE CADEN XM&EVAL INSTITUTE COMPRE NEW PT 1/> VST COMPUTERI 12763 [facility] COTE ZED 3 ANG ANG OPHTHALMI C IMAGING RETINA Encounters Encounter Start End Date Code Location Performer Type Date EMERGENCY 67382 [facility] 3 3 EMERGENCY DEPARTMEN SERVICES T VISIT HIGH/URGE NT SEVERITY OFFICE 29020 K[facility] DAVIS 3 3 ANG TUSHAR T [place] 45 MINUTES EMERGENCY 09322 [facility] 3 3 EMERGENCY AWA DEPARTMEN SERVICES T VISIT HIGH/URGE NT SEVERITY
--- OUTSIDE RECORDS SUMMARY | 2017-03-30 18:30 | External Medical Summary Rpt ---
Author Author , YONAS BRANHAM Address Unknown Phone [email or web address] Immunization Name Date Rout CVX Reac Dose [...]
--- OUTSIDE RECORDS SUMMARY | 2017-03-30 18:30 | External Medical Summary Rpt ---
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 Role Phone [facility], Unavailable Unavailable [facility] Unavailable Unavailable SERVICE, [facility] Unavailable Unavailable SERVICE, [facility] JESUS OROSCO Unavailable Unavailable [facility] Unavailable Unavailable INSTITUTE, [facility] Devan Lee MD, Unavailable Unavailable [facility] Unavailable Unavailable SERVICES, [facility] KERA FINLEY, Unavailable Unavailable KERA FINLEY, Unavailable Unavailable KERA LUU, GASTON LUU Unavailable Unavailable Purpose Continuity of Care Document - 08-23-2012 through 2016 Problems Code Diagnosis DOS Provider Status 61232 DIAB W/O 12-09-2012 [facility] COMP TYPE EMERGENCY II/UNS NOT SERVICES STATED UNCNTRL 2511 OTHER 12-09-2012 [facility] SPECIFIED AMBULANCE HYPOGLYCEMI SERVICE A 2512 HYPOGLYCEMI 12-09-2012 [facility] A, EMERGENCY UNSPECIFIED SERVICES 07430 OTHER 12-09-2012 [facility] [address] AFTER-CATAR 10-10-2012 [facility] VISION 23532 DIAB 09-12-2012 [facility] TYPE II/UNS NOT UNCNTRL 3688 OTHER 09-12-2012 [facility] SPECIFIED EYE VISUAL INSTITUTE DISTURBANCE S V431 LENS 09-12-2012 [facility] REPLACED BY EYE OTHER INSTITUTE MEANS 33737 MODERATE 08-28-2012 [facility] NONPROLIFER ANG ATIVE DIABETIC RETINOPATHY 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 250.01 250.01 DIAB 08-23-2012 [facility], TYPE Hospital I [JUVENILE TYPE], NOT UNCNTRLD 401.9 401.9 08-23-2012 [facility] 521.00 521.00 08-23-2012 [facility] CARIES 528.2 528.2 ORAL 08-23-2012 [facility] 5282 ORAL 08-23-2012 [facility] EMERGENCY SERVICES 724.3 724.3 08-23-2012 [facility] 7243 SCIATICA 08-23-2012 [facility] Allergies, Adverse Reactions, Alerts Type [...] K/MM3 ed Bld 12:02 Auto Glucose BldC Glucomtr-[facility] (12-09-2012 10:23) Glucose 12-09-2 85 70-110 complet BldC 013 mg/dl ed Glucomt 10:23 r-[facility] URINALYSIS/COMPLETE (08-23-2012 18:04) URINE YELLOW YELLOW complet [...] DOS Code Location Performer Comment [facility]OUND A0425 [facility] PER SERVICE SERVICE STATUTE MILE [facility] A0427 [facility] SERVICE 3 AMBULANCE AMBULANCE ALS SERVICE SERVICE EMERGENCY TRANSPORT LEVEL 1 [facility] 07768 [facility] 59206 [facility] 3 EYE CADEN XM&EVAL INSTITUTE COMPRE NEW PT 1/> VST COMPUTERI 83813 [facility] CASTANEDA 3 ANG ANG OPHTHALMI C IMAGING RETINA Encounters Encounter Start End Date Code Location Performer Type Date Emergency HARPER Gamble MD (ER) 3 09:58 3 13:44 [facility] EMERGENCY 86367 [facility] 3 3 EMERGENCY DEPARTMEN SERVICES T VISIT HIGH/URGE NT SEVERITY OFFICE 64208 [facility] DAVIS 3 3 ANG TUSHAR T NEW 45 MINUTES Emergency HARPER Lee MD (ER) 3 17:47 3 18:41 [facility] EMERGENCY 57349 [facility] 3 3 EMERGENCY AWA DEPARTMEN SERVICES T VISIT HIGH/URGE NT SEVERITY
--- OUTSIDE RECORDS SUMMARY | 2017-03-30 18:32 | External Medical Summary Rpt ---
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 Value Referen Units Interpr Notes Date [...] AM ume] in source Serum or data [place] [address] Plasma by [address] [place] [address] membrane [id number] electrode Lab (ISE) Director: Eliseo Vicente PhD, Phone: [phone] 25-Hydroxyvitamin D [Mass/volume] in Serum or Plasma Observa Value Referen Units Interpr Notes Date tion ce etation Range 25-Hydrox 30.0 - ng/mL Low Vitamin D Feb 15 yvitamin 100.0 2017 7:29 D deficienc AM [Mass/vol y has ume] in been Serum or defined Plasma by the [place] ofMedicin e and an Endocrine Society practice guideline as alevel of serum 25-OH vitamin D less than 20 ng/mL (1,2).The Endocrine Society went on to further define vitamin Dinsuffic iency as a level between 21 and 29 ng/mL (2).1. IOM (Institut e of Medicine) . 2010. Dietary reference intakes for calcium and D. [place]: [employer] Press.2. Sanaz MF, Donnell NC, Carlos Rodríguez CROWELL, et al.Evalua tion, treatment , and preventio n of vitamin Ddeficien cy: an Endocrine Society clinical practiceg uideline. JCEM. 2010; 96(7):191 1-30.Perf ormed at: CB - [facility] [id number] [place], [place] [id number] Manager Retention: Eliseo Vicente PhD, Phone: [phone] Parathyrin.intact [Mass/volume] in Serum or Plasma Observa Value Referen Units Interpr Notes Date tion ce etation Range Parathyri 15 - 65 pg/mL No Performed Feb 15 n.intact informati at: CB 2016 7:29 [Mass/vol on in - [facility] AM ume] in source Serum or data [id number] Plasma 0 [place], [place] [id number] Manager Retention: Eliseo Vicente PhD, Phone: [phone] Renal function 2000 panel in Serum [...] 37.0 - % Normal No Feb 15 ehrve/100 80.0 informati 2016 7:29 leukocyte on in [...] AM in Serum source or Plasma data [id number] [place], [place] [id number] Manager Retention: Eliseo Vicente PhD, Phone: [phone] Ferritin [Mass/volume] in Serum or Plasma [...]
--- OUTSIDE RECORDS SUMMARY | 2017-03-30 18:32 | External Medical Summary Rpt ---
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 Units Interpr Notes [...] AM ume] in source Serum or data [place] [address] [address] [place] [address] membrane [id number] electrode Lab ([facility]) Director: Eliseo Vicente PhD, Phone: [phone] 25-Hydroxyvitamin D [Mass/volume] in Serum or Plasma Observa Value Referen Units Interpr Notes Date tion ce etation Range 25-Hydrox 30.0 - ng/mL Low Vitamin D Feb 15 yvitamin 100.0 2017 7:29 D deficienc AM [Mass/vol y has ume] in been Serum or defined Plasma by the [place] ofMedicin e and an Endocrine Society practice guideline as alevel of serum 25-OH vitamin D less than 20 ng/mL (1,2).The Endocrine Society went on to further define vitamin Dinsuffic iency as a level between 21 and 29 ng/mL (2).1. IOM (Institut e of Medicine) . 2010. Dietary reference intakes for calcium and D. [place]: [employer] Press.2. Sanaz MF, Donnell NC, Carlos Rodríguez CROWELL, et al.Evalua tion, treatment , and preventio n of vitamin Ddeficien cy: an Endocrine Society clinical practiceg uideline. JCEM. 2010; 96(7):191 1-30.Perf ormed at: CB - [facility] [id number] [place], [place] [id number] Travel Nurse: Eliseo Vicente PhD, Phone: [phone] Parathyrin.intact [Mass/volume] in Serum or Plasma Observa Value Referen Units Interpr Notes Date tion ce etation Range Parathyri 15 - 65 pg/mL No Performed Feb 15 n.intact informati at: CB 2016 7:29 [Mass/vol on in - [facility] AM ume] in source Serum or data [id number] Plasma 0 [place], [place] [id number] Travel Nurse: Eliseo Vicente PhD, Phone: [phone] Renal function 2000 panel in Serum [...] AM in Serum source or Plasma data [id number] [place], [place] [id number] Travel Nurse: Eliseo Vicente PhD, Phone: [phone] Ferritin [Mass/volume] in Serum or Plasma [...]
== END 2017-03-22 10:10 | disposition home or self-care (01) | DRG 981 ==
LOC: ER 09:41 → 2ND 12:45 → ER 12:45 → 2ND 14:46
PROVIDERS: Emergency Medicine; Family Medicine; Internal Medicine
PROC: 4A023N7 Measurement of Cardiac Sampling and Pressure, Left Heart, Percutaneous Approach (ICD-10-PCS; principal; 2017-03-21 09:45)
PROC: 027034Z Dilation of Coronary Artery, One Artery with Drug-eluting Intraluminal Device, Percutaneous Approach (ICD-10-PCS; principal; 2017-03-21 09:45)
PROC: B2181ZZ Fluoroscopy of Left Internal Mammary Bypass Graft using Low Osmolar Contrast (ICD-10-PCS; principal; 2017-03-21 09:45)
PROC: B2111ZZ Fluoroscopy of Multiple Coronary Arteries using Low Osmolar Contrast (ICD-10-PCS; principal; 2017-03-21 09:45)
PROC: B2151ZZ Fluoroscopy of Left Heart using Low Osmolar Contrast (ICD-10-PCS; principal; 2017-03-21 09:45)
PROC: 02703ZZ Dilation of Coronary Artery, One Artery, Percutaneous Approach (ICD-10-PCS; principal; 2017-03-21 09:45)
PROC: B2131ZZ Fluoroscopy of Multiple Coronary Artery Bypass Grafts using Low Osmolar Contrast (ICD-10-PCS; principal; 2017-03-21 09:45)
DX: J18.9 Pneumonia, unspecified organism (principal); I21.4 Non-ST elevation (NSTEMI) myocardial infarction; N18.4 Chronic kidney disease, stage 4 (severe); I50.9 Heart failure, unspecified; E11.22 Type 2 diabetes mellitus with diabetic chronic kidney disease; I27.20 Pulmonary hypertension, unspecified; Z95.1 Presence of aortocoronary bypass graft; I25.119 Atherosclerotic heart disease of native coronary artery with unspecified angina pectoris; Z72.0 Tobacco use; Z95.5 Presence of coronary angioplasty implant and graft; Z91.81 History of falling; I12.9 Hypertensive chronic kidney disease with stage 1 through stage 4 chronic kidney disease, or unspecified chronic kidney disease; Z79.4 Long term (current) use of insulin
CPT/HCPCS: C1725; C1751; C1760; C1769; C1876; C1894; G0378; J1644; Q9967

== ENCOUNTER → 2017-03-29 | Outpatient (CLI) | payer MEDICARE ==
[~2017-03-29] MED LIST changes: +ADULT LOW DOSE81 MG PO; +LEVAQUIN750 MG PO; +NEURONTIN 100100 MG PO
[2017-03-29 09:54] LABS: BUN 34 mg/dL (7-18)
[2017-03-29 10:16] LABS: GFR (ESTIMATED) 23 ML/MIN (59-)
== END ==
LOC: LAB 08:01
PROVIDERS: Internal Medicine
DX: I25.10 Atherosclerotic heart disease of native coronary artery without angina pectoris (principal); I27.9 Pulmonary heart disease, unspecified; I10 Essential (primary) hypertension; E11.9 Type 2 diabetes mellitus without complications; E78.5 Hyperlipidemia, unspecified; N18.4 Chronic kidney disease, stage 4 (severe); Z95.1 Presence of aortocoronary bypass graft

== ENCOUNTER → 2017-05-18 | Outpatient (CLI) | payer MEDICARE ==
--- NOTE | 2017-05-18 12:19 | RADIOLOGY REPORT PS360 ---
EXAM: LUMBAR SPINE 5 VIEWS HISTORY: LOW BACK PAIN WITH LEFT HIP PAIN ORDERING PHYSICIAN: Chase Dillon MD PATIENT AGE: 66 years COMPARISON: 02/19/2017 FINDINGS: Bridging osteophytes are present at L1-L2 and L2-L3. Degenerative disc disease is noted throughout the lumbar spine worse at T12-L3. There is 4 mm anterolisthesis of L4 on L5. Facet arthritic changes are present at L4-5 and L5-S1. Incidental vascular calcification noted. No acute fracture or dislocation. Unremarkable SI joints. IMPRESSION: Moderate lumbar spondylosis with degenerative disc disease, facet arthritic change, and osteophytosis as described above overall not significantly changed
--- NOTE | 2017-05-18 12:19 | RADIOLOGY REPORT PS360 ---
HIP RT 2-3V W/PELVIS IF PERFOR HISTORY: Right hip pain LOW BACK PAIN WITH RIGHT HIP PAIN ORDERING PHYSICIAN: Chase Dillon MD PATIENT AGE: 66 years COMPARISON: None FINDINGS: Mild osteoarthritic changes are present involving the right hip with subarticular cystic change of the lateral acetabulum. No fracture or dislocation. No lytic or blastic change. There is generalized vascular calcification. IMPRESSION: Mild osteoarthritis with subarticular cystic changes
--- NOTE | 2017-05-18 12:19 | RADIOLOGY REPORT PS360 ---
HIP LT 2-3V W/PELVIS IF PERFOR HISTORY: Left hip pain LOW BACK PAIN WITH LEFT HIP PAIN ORDERING PHYSICIAN: Chase Dillon MD PATIENT AGE: 66 years COMPARISON: None FINDINGS: No fracture or dislocation. No lytic or blastic change. Mild osteoarthritic changes present involving the left hip with subchondral cystic changes of the acetabulum. IMPRESSION: Osteoarthritis with acetabular subchondral cystic changes
== END ==
LOC: RAD 11:11
DX: M25.552 Pain in left hip (principal); M54.5 Low back pain; Z78.0 Asymptomatic menopausal state; Z13.820 Encounter for screening for osteoporosis